=== PATIENT | male | born 1950 | race Caucasian/White ===

== ENCOUNTER 2018-08-29 09:40 | Outpatient (CLI) | payer MEDICARE, BC, SELFPAY ==
[2018-08-29 13:06] LABS: ALT 37 U/L (12-78); AST 17 U/L (15-37); Albumin 3.8 g/dL (3.4-5.0); Alkaline Phosphatase 69 U/L (46-116); Anion Gap 10.8 mmol/L (3-11); BUN 30 mg/dL (7-18); Bilirubin, Total 0.3 mg/dL (0.2-1.0); CO2 27.2 mmol/L (21.0-32.0); CREATININE 1.14 mg/dL (0.70-1.30); Calcium 9.4 mg/dL (8.5-10.1); Calculated LDL 93 mg/dL; Chloride 102 mmol/L (98-107); Cholesterol 177 mg/dL (50-200); Glucose 95 mg/dL (70-100); HDL Cholesterol 36 mg/dL (40-60); Potassium 4.8 mmol/L (3.5-5.1); Sodium 140 mmol/L (136-145); Triglyceride 243 mg/dL (30-150)
[2018-08-30 12:19] LABS: PSA, Screening 0.5 ng/ml (0-4.5)
== END 2018-08-29 10:00 ==
PROVIDERS: PCP Family Medicine; Visit Provider Family Medicine
DX: E78.5 Hyperlipidemia, unspecified (principal); I10 Essential (primary) hypertension; E11.8 Type 2 diabetes mellitus with unspecified complications; Z12.5 Encounter for screening for malignant neoplasm of prostate
CPT/HCPCS: 36415; 80053; 80061; 83721; 84153

== ENCOUNTER 2019-08-15 14:46 | Outpatient (REF) | payer MEDICARE, BC, SELFPAY ==
[2019-08-15 19:42] LABS: HCT 45.4 % (40.0-50.0); HGB 14.9 g/dL (13.5-17.5); Mean Corp. HGB Concentration 32.8 g/dL (32.0-36.0); Mean Corpuscular Hemoglobin 31.6 pg (27.0-33.0); Mean Corpuscular Volume 96.2 fL (80-95); Mean Platelet Volume 11.4 fL (8.0-11.0); Platelet Count 229 x1000/uL (130-400); RBC 4.72 m/cumm (4.50-6.00); RBC Distribution Width 14.9 % (11.8-14.1); White Blood Cell Count 8.98 k/cumm (4.4-10.8)
[2019-08-15 19:43] LABS: ALT 42 U/L (16-63); AST 19 U/L (15-37); Albumin 3.8 g/dL (3.4-5.0); Alkaline Phosphatase 62 U/L (46-116); Anion Gap 9.8 mmol/L (3-11); BUN 25 mg/dL (7-18); Bilirubin, Total 0.3 mg/dL (0.2-1.0); CO2 29.2 mmol/L (21.0-32.0); CREATININE 1.23 mg/dL (0.70-1.30); Calcium 9.4 mg/dL (8.5-10.1); Chloride 101 mmol/L (98-107); Estimated GFR 58.34 (mL/min/1.73m2); Glucose 144 mg/dL (74-106); Magnesium 1.9 mg/dL (1.8-2.4); Potassium 4.2 mmol/L (3.5-5.1); Sodium 140 mmol/L (136-145); Total Protein 6.7 g/dL (6.4-8.2)
== END 2019-08-15 15:06 ==
LOC: NCHCN 14:46
PROVIDERS: PCP Family Medicine; Visit Provider Family Medicine
DX: I10 Essential (primary) hypertension (principal); N28.9 Disorder of kidney and ureter, unspecified; E11.9 Type 2 diabetes mellitus without complications; E78.5 Hyperlipidemia, unspecified; D72.829 Elevated white blood cell count, unspecified
CPT/HCPCS: 80053; 85027; 83735

== ENCOUNTER 2020-08-18 10:45 | Outpatient (REF) | payer MEDICARE, BC, SELFPAY ==
[2020-08-18 19:35] LABS: HCT 48.6 % (40.0-50.0); HGB 15.7 g/dL (13.5-17.5); MCH 31.2 pg (27.0-33.0); MCHC 32.3 % (32.0-36.0); MCV 96.6 fL (80-95); MPV 11.9 fL (8.0-11.0); Platelet Count 238 10^3/uL (130-400); RBC 5.03 10^6/uL (4.36-5.78); RDW 14.6 % (11.8-14.1); RDW-SD 51.8 fL; WBC 9.97 10^3/uL (4.4-10.8)
[2020-08-18 20:14] LABS: ALT 35 U/L (16-63); AST 17 U/L (15-37); Albumin 3.9 g/dL (3.4-5.0); Alkaline Phosphatase 70 U/L (46-116); Anion Gap 10.3 mmol/L (3-11); BUN 22 mg/dL (7-18); Bilirubin, Total 0.3 mg/dL (0.2-1.0); CO2 28.7 mmol/L (21.0-32.0); CREATININE 1.3 mg/dL (0.70-1.30); Calcium 9.5 mg/dL (8.5-10.1); Chloride 101 mmol/L (98-107); Estimated GFR 54.57 (mL/min/1.73m2); Glucose 107 mg/dL (74-106); Potassium 5.1 mmol/L (3.5-5.1); Sodium 140 mmol/L (136-145); TSH (W/Ref FT4) 1.47 uIU/mL (0.36-3.74); Total Protein 7.2 g/dL (6.4-8.2); Vitamin B12 880 pg/mL (193-986)
== END 2020-08-18 11:59 | disposition home or self-care (01) ==
LOC: NCHCN 10:45
PROVIDERS: PCP Family Medicine; Visit Provider Family Medicine
DX: I10 Essential (primary) hypertension (principal); E78.5 Hyperlipidemia, unspecified; I73.9 Peripheral vascular disease, unspecified; G62.9 Polyneuropathy, unspecified
CPT/HCPCS: 80053; 85027; 82607; 84443

== ENCOUNTER 2020-12-17 15:36 | Outpatient (REF) | payer MEDICARE, BC, SELFPAY ==
[2020-12-17 18:54] LABS: Anion Gap 11.5 mmol/L (3-11); BUN 21 mg/dL (7-18); CO2 28.5 mmol/L (21.0-32.0); CREATININE 1.1 mg/dL (0.70-1.30); Calcium 9.4 mg/dL (8.5-10.1); Chloride 101 mmol/L (98-107); Glucose 130 mg/dL (74-106); Sodium 141 mmol/L (136-145)
[2020-12-17 19:02] LABS: Hemoglobin A1C 6.1 % (<5.7)
== END 2020-12-17 15:37 | disposition home or self-care (01) ==
LOC: NCHCN 15:36
PROVIDERS: PCP Family Medicine; Visit Provider Family Medicine
DX: E11.8 Type 2 diabetes mellitus with unspecified complications (principal); I10 Essential (primary) hypertension; N28.9 Disorder of kidney and ureter, unspecified; Z00.00 Encounter for general adult medical examination without abnormal findings
CPT/HCPCS: 80048; 83036

== ENCOUNTER 2022-08-11 15:26 | Outpatient (REF) | payer MEDICARE, BC, SELFPAY ==
[2022-08-11 18:38] LABS: HCT 41.2 % (40.0-50.0); HGB 13.2 g/dL (13.5-17.5); MCH 31.1 pg (27.0-33.0); MCV 97 fL (80-95); MPV 10.8 fL (8.0-11.0); Platelet Count 315 10^3/uL (130-400); RBC 4.25 10^6/uL (4.36-5.78); RDW 13.8 % (11.8-14.1); RDW-SD 49.4 fL; WBC 13.19 10^3/uL (4.4-10.8)
[2022-08-11 18:50] LABS: ALT 43 U/L (16-63); AST 35 U/L (15-37); Albumin 3.2 g/dL (3.4-5.0); Alkaline Phosphatase 68 U/L (46-116); Anion Gap 4.6 mmol/L (3-11); BUN 24 mg/dL (7-18); Bilirubin, Total 0.2 mg/dL (0.2-1.0); CO2 32.4 mmol/L (21.0-32.0); CREATININE 1.2 mg/dL (0.70-1.30); Calcium 9.4 mg/dL (8.5-10.1); Chloride 100 mmol/L (98-107); Estimated GFR 64.25 (mL/min/1.73m2); Glucose 94 mg/dL (74-106); Sodium 137 mmol/L (136-145); Total Protein 7.7 g/dL (6.4-8.2)
== END 2022-08-11 15:27 | disposition home or self-care (01) ==
LOC: NCHCN 15:26
PROVIDERS: PCP Family Medicine; Visit Provider Family Medicine
DX: N28.9 Disorder of kidney and ureter, unspecified (principal); I10 Essential (primary) hypertension; E11.8 Type 2 diabetes mellitus with unspecified complications
CPT/HCPCS: 80053; 85027

== ENCOUNTER 2023-08-24 16:34 | Outpatient (REF) | payer MEDICARE, BC, SELFPAY ==
[2023-08-24 18:51] LABS: HCT 41.5 % (40.0-50.0); HGB 13.9 g/dL (13.5-17.5); MCH 31.6 pg (27.0-33.0); MCHC 33.5 % (32.0-36.0); MCV 94 fL (80-95); MPV 11.8 fL (8.0-11.0); Platelet Count 227 10^3/uL (130-400); RDW 13.7 % (11.8-14.1); RDW-SD 47.7 fL; WBC 11.46 10^3/uL (4.4-10.8)
[2023-08-24 18:53] LABS: ESR 26 mm/hr (0-20)
[2023-08-24 19:34] LABS: ALT 23 U/L (16-63); AST 22 U/L (15-37); Albumin 4.1 g/dL (3.4-5.0); Alkaline Phosphatase 62 U/L (46-116); BUN 28 mg/dL (7-18); Bilirubin, Total 0.32 mg/dL (0.2-1.0); CREATININE 1.1 mg/dL (0.70-1.30); Calcium 9.6 mg/dL (8.5-10.1); Calculated LDL 74 mg/dL (<100); Chloride 100 mmol/L (98-107); Cholesterol 164 mg/dL (<200); Estimated GFR 70.88 (mL/min/1.73m2); Glucose 81 mg/dL (74-106); HDL Cholesterol 40 mg/dL (40-60); Potassium 4.3 mmol/L (3.5-5.1); Sodium 137 mmol/L (136-145); Total Protein 6.9 g/dL (6.4-8.2); Triglyceride 254 mg/dL (<150)
[2023-08-24 20:03] LABS: Hemoglobin A1C 5.5 % (<5.7)
[2023-08-24 20:27] LABS: Uric Acid 8.2 mg/dL (3.5-7.2)
[2023-08-25 17:58] LABS: CRP, High Sensitivity 3.99 mg/L (See Note)
== END 2023-08-24 16:35 | disposition home or self-care (01) ==
LOC: NCHCN 16:34
PROVIDERS: PCP Family Medicine; Visit Provider Family Medicine
DX: E11.9 Type 2 diabetes mellitus without complications (principal); I10 Essential (primary) hypertension; E78.5 Hyperlipidemia, unspecified; M1A.00X1 Idiopathic chronic gout, unspecified site, with tophus (tophi); R79.89 Other specified abnormal findings of blood chemistry; R79.82 Elevated C-reactive protein (CRP); R70.0 Elevated erythrocyte sedimentation rate
CPT/HCPCS: 80053; 80061; 85027; 85652; 86141; 83036; 84550

== ENCOUNTER 2024-08-01 09:40 | Inpatient (IN) | payer MEDICARE, BC, SELFPAY ==
[2024-08-01] VITALS (19 sets, daily range): BP systolic 90–140; BP diastolic 27–84; PULSE 60–89; RESP 14–22; TEMP 36.4–37.4; O2SAT 94–100
--- NOTE | 2024-08-01 09:57 | ED.GENADUL_ITS ---
Discharge Plan Discharge Details Chief Complaint: GenMedical Clinical Impression: Acute osteomyelitis of left calcaneus, Anemia, Severe sepsis, DAKOTA (acute kidney injury) Primary Care Provider: Wanda Cespedes V ED Provider: Rylan Gomez Eola Meds and New Rx's Prescriptions: No Action gabapentin 100 mg capsule 100 mg PO TID Patient Comments: 100 mg AM 200 mG 1600 300 mG bedtime bumetanide 1 mg tablet 1 mg PO DAILY glipizide 5 mg tablet 5 mg PO DAILY amlodipine 2.5 mg tablet 2.5 mg PO DAILY lisinopril 20 mg tablet 20 mg PO DAILY aspirin 81 mg capsule 81 mg PO DAILY atorvastatin 80 mg tablet 80 mg PO DAILY metoprolol succinate 25 mg capsule,sprinkle,ER 24hr 25 mg PO DAILY clopidogrel 75 mg tablet 75 mg PO DAILY multivitamin Tablet 1 tab PO DAILY omega 5-kxo-mth-fish oil [Fish Oil] 1,200 (144-216) mg capsule PO DAILY HPI General Date/Time Provider Initiated Documentation: 08/01/24 09:57 . HPI Narrative: MDM This is a hypotensive but normothermic and not tachycardic 74-year-old male with history of coronary artery disease hypertension hyperlipidemia diabetes active tobacco and PAD with open ulcers on his left foot concerned about the possibility of osteomyelitis for which patient will undergo MRI of his left lower extremity. He is also having abdominal distention and some diarrhea some concern about the possibility of diverticulitis will obtain a CT abdomen pelvis. Given URI symptoms we will also swab for COVID RSV and influenza. No pain out of proportion to suggest necrotizing soft tissue infection. No specific right lower quadrant tenderness to suggest appendicitis. Given concern for sepsis I did not empirically with piperacillin/tazobactam and vancomycin. Will obtain urinalysis to assess for UTI the patient denies dysuria. Patient is not hypoxic and has no abnormal lung sounds and my suspicion is low for pneumonia. No rash to leg to suggest zoster. I considered whether or not to obtain a CT angiogram given patient's prior left femoral endarterectomy and SFA stenting. Given his well-perfused feet we will defer vessel imaging at this point in time. Anticipate patient will require hospitalization. Will initiate fluid resuscitation with 500 cc of crystalloid. Initial lactate was 2.9 we will repeat lactate at 12 PM and provide additional 500 cc of crystalloid. History consistent with severe sepsis. 11:15 AM I was in touch with Dr. Woodard from podiatry who also requested x-rays. 11:35 AM Patient was found to be newly anemic. He was also found to have an DAKOTA. Will order type and screen. Patient's says that he has been receiving iron repletion through the winter. He denies any black or bloody stools.He is on aspirin and clopidogrel but not anticoagulated so no indication for reversal. 4:27 AM I was in touch with Dr. Woodard again. She assessed patient at bedside. She obtained a wound culture. She was concerned about the possibility of calcanectomy at a critical access hospital. She also felt that the patient may require a talectomy. She advised attempting to transfer to tertiary care as patient may benefit from a BKA. I have reached out to transfer center. Will have MRI and x-rays pushed. Patient had no source of intra-abdominal infection. He did have significant bladder distention for which a Donohue catheter was placed. I signed patient out to Dr. Valenzuela pending transfer request to [facility]. Chronic conditions affecting the care of the patient: Peripheral arterial disease multiple interventions History obtained from an outside historian: Patient's with External record review: Discharge from [facility] the spring Diagnostic interpretations performed by me: Per my independent interpretation chest x-ray shows: Per my independent interpretation EKG shows: Not performed ]Medications: Broad-spectrum antibiotics Social determinants of health affecting disposition: N/A Management discussed with: Podiatry Treatment/interventions considered: N/A Response to therapies provided: N/A HPI History of Present Illness The patient presents for evaluation of fever and recent infection. History is reported by other person in the presence of the patient. He was scheduled for vascular surgery at [facility] in February 2024, during which coronary occlusions were discovered. 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 During this period, he developed a pressure ulcer on his left foot, which has since been debrided with Santyl and is currently in the granulation phase. However, the wound's appearance has recently deteriorated. He also developed a heel ulcer, which has been debrided of eschar and is healing well. Postoperatively, he developed a large seroma in his right groin incision, which required opening, cleaning, and debridement. He was treated with antibiotics, but it is unclear if an infection was present as no culture results were observed. The wound was managed with a VAC dressing and is now superficial, although not completely closed. It appears puckered due to the condition. The top of the foot ulcer is being treated with Allevyn Ag with silver, while the heel ulcer is managed with matrix collagen. On 05/07/2024, he underwent a 7-hour revascularization procedure involving the placement of four stents and two prostheses between the iliac and femoral arteries. His follow-up indicated 100% success on one side and 70% on the other due to an old stent in the left leg that had kinked, necessitating the development of collateral circulation. He began experiencing gastrointestinal symptoms, including gastric pain and discomfort, two days ago, coinciding with a fever spike. His initial temperature was 101.8 degrees Fahrenheit, which decreased to 100.4 degrees Fahrenheit with Tylenol but increased again yesterday afternoon. Without Tylenol, his temperature rises back to 100.4 degrees Fahrenheit. He reports upper abdominal pain but no chest pain or syncope. He has a clear runny nose but no cough or cold symptoms. He reports no dysuria, and his urine is clear and yellow. There is no foul-smelling drainage from his feet or ulcers. His ambulation is poor due to neuropathy, affecting his balance and walking ability. He does Exam General: Well-appearing in no acute distress speaking in complete sentences. Head: Normocephalic, atraumatic. Eye: Extraocular eye movements intact. No conjunctival injection. No scleral icterus. Ear, nose, mouth, throat: Grossly normal inspection. Normal voice, handling secretions normally. Neck: Trachea midline. Cardiovascular: Well-perfused distal extremities. Regular rate and rhythm. Respiratory: Nonlabored respiration. Clear lungs bilaterally. Gastrointestinal: Moderately distended abdomen. Soft reducible umbilical hernia. Mild diffuse abdominal pain. No rebound. No guarding. Musculoskeletal: On the patient's left lower extremity there are 2 open ulcerated areas on the patient's left foot. The anterior wound measures approximately 2 x 2 cm. The anterior wound appears to have some mild erythema around the base. The open wound of the patient's left heel measures approximately 3 x 3 cm. Patient has warm well-perfused feet bilaterally. In the patient's right groin there is a well-healing ulcerated area with granulation tissue over small approximately 1 x 1 cm area. On the patient's right foot there are no open ulcers. Patient is missing his fifth toe on the right foot. Skin: Normal for age and race, grossly normal temperature and turgor. No acute rash. Neurologic: Alert and appropriate, no apparent acute deficits. Psychiatric: Mood and manner are appropriate. Grooming and personal hygiene are appropriate. Related Data Home Medications ?Medication ?Instructions ?Recorded ?Confirmed amlodipine 2.5 mg tablet 2.5 mg PO DAILY 08/01/24 08/01/24 aspirin 81 mg capsule 81 mg PO DAILY 08/01/24 08/01/24 atorvastatin 80 mg tablet 80 mg PO DAILY 08/01/24 08/01/24 bumetanide 1 mg tablet 1 mg PO DAILY 08/01/24 08/01/24 clopidogrel 75 mg tablet 75 mg PO DAILY 08/01/24 08/01/24 gabapentin 100 mg capsule 100 mg PO TID 08/01/24 08/01/24 glipizide 5 mg tablet 5 mg PO DAILY 08/01/24 08/01/24 lisinopril 20 mg tablet 20 mg PO DAILY 08/01/24 08/01/24 metoprolol succinate 25 mg capsule 25 mg PO DAILY 08/01/24 08/01/24 sprinkle, ext. release 24 hr multivitamin 1 tab PO DAILY 08/01/24 08/01/24 omega 4-zaf-jiz-fish oil 1,200 mg cap PO DAILY 08/01/24 (144 mg-216 mg) capsule (Fish Oil) Allergies Allergy/AdvReac Type Severity Reaction Status Date / Time codeine Allergy rash Verified 08/01/24 09:52 furosemide (From Lasix) Allergy rash Verified 08/01/24 09:52 hydrochlorothiazide Allergy rash Verified 08/01/24 09:52 turkey AdvReac Diarrhea Verified 08/01/24 09:52 General Stated Complaint: GenMedical RONNY: 3 Course Vital Signs Vital signs: Vital Signs Temperature 37.4 C 08/01/24 09:44 Pulse 89 08/01/24 09:44 Respiratory Rate 18 08/01/24 09:44 Blood Pressure 96/59 L 08/01/24 09:44 Pulse Oximetry 95 08/01/24 09:44 Temperature 37.4 C 08/01/24 09:44 Temperature Source Oral 08/01/24 09:44 Pulse 89 08/01/24 09:44 Respiratory Rate 18 08/01/24 09:44 Blood Pressure 96/59 L 08/01/24 09:44 Pulse Oximetry 95 08/01/24 09:44 Oxygen Delivery Method Room Air 08/01/24 09:44 Oxygen Flow Rate 0 08/01/24 09:44 Comment neuropathy pain 08/01/24 09:44 Medical Decision Making Quality:SDOH Health Related Social Needs: 2 No Data to Display PFSH All Active Problems (Updated 08/01/24 @ 16:55 by Rylan Gomez MD) DAKOTA (acute kidney injury) (Acute) Non-healing ulcer of left foot with necrosis of bone (Acute) Non-healing ulcer of left ankle with necrosis of bone (Acute) Non-healing ulcer of left ankle (Acute) Peripheral arterial disease with history of revascularization (Acute) Acute osteomyelitis of left talus (Acute) Osteomyelitis of left tibia (Acute) Severe sepsis (Acute) Anemia (Chronic) Acute osteomyelitis of left calcaneus (Acute) Social History Smoking risk assessment performed?: No Alcohol Intake: former
--- NOTE | 2024-08-01 10:00 | DI.MRI_ITS ---
Exam(s) MR LOWER EXTREMITY LT WO/W EXAM: MR LOWER EXTREMITY LT WO/W CLINICAL HISTORY: Left anterior foot and heel ulcers TECHNIQUE: Multiplanar multisequence MRI was performed. COMPARISON: No exams were available for comparison FINDINGS: SKIN/SUBCUTANEOUS TISSUES: There is diffuse soft tissue edema-cellulitis. There is a focal ulceratio n over the distal aspect of the 5th toe and there is soft tissue tophus around the distal 5th metatar maria del carmen as well as similar soft tissue tophus around the great toe metatarsophalangeal joint. MARROW/ARTICULATIONS:No evidence of fracture. There is advanced osteoarthritic degenerative change i n the great toe metatarsophalangeal joint. There are advanced arthropathy changes of the tarsometata rsal joints of the midfoot and element of midfoot collapse. Consistent with element of neuropathic f oot findings. Hindfoot calcaneus signal abnormality consistent with probable osteomyelitis; see separate hindfoot/a nkle MRI dictation. There does not appear to be marrow signal consistent with osteomyelitis in the m etatarsals and midfoot bones. There is slight signal abnormality in the distal aspect of the distal phalanx of the 5th toe which may represent developing osteomyelitis at this level subjacent to the fo gorge also at this location. However, this does not fulfill osteomyelitis criteria on all sequences. MUSCLES: Diffuse edema but no distinct focal abscess evident in the mid and forefoot.. EXTRAMUSCULAR SOFT TISSUES: There is diffuse soft tissue edema/cellulitis. OTHER: None. IMPRESSION: 1. Advanced midfoot degenerative arthropathy and partial midfoot collapse. 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 Also advanced degenerative changes in the great toe metatarsophalangeal joint. 2. There is a focal ulcer over the distal aspect of the 5th toe. At risk for developing osteomyeliti s but no definite convincing evidence of osteomyelitis of the subjacent phalanges at this time. Appr opriate follow-up recommended. 3. Diffuse edema and cellulitis in the mid and forefoot but no evidence of focal soft tissue abscess. See separate MRI dictation for hindfoot. DATA REPOSITORY:
--- NOTE | 2024-08-01 10:13 | DI.RAD_ITS ---
Exam(s) XR CHEST 1V IN DI DEPT EXAM: XR CHEST 1V IN DI DEPT CLINICAL HISTORY: Fever. TECHNIQUE: 2D digital imaging was performed. COMPARISON: No exams were available for comparison FINDINGS: Single AP portable view. Heart size is upper normal. The mediastinum is not widened. Lungs are clear. No infiltrates nor obvious pleural effusions. IMPRESSION: No acute pulmonary findings on this single AP portable view of the chest. DATA REPOSITORY: RADIATION DOSE DELIVERED:
[2024-08-01 10:37] LABS: Abs Immature Grans 0.18 10^3/uL (0.0-0.06); Absolute Eosinophil Count 0.03 10^3/uL (0.0-0.7); Absolute Monocyte Count 1.01 10^3/uL (0.1-0.8); Basophils % 0.1 %; Eosinophils % 0.2 %; HGB 7.2 g/dL (13.5-17.5); Immature Grans % 1.3 %; MCHC 31.3 % (32.0-36.0); MCV 83 fL (80-95); MPV 10.6 fL (8.0-11.0); Monocytes % 7.1 %; Neutrophils % 88.3 %; Platelet Count 258 10^3/uL (130-400); RBC 2.77 10^6/uL (4.36-5.78); RDW 16.9 % (11.8-14.1); RDW-SD 51.2 fL; WBC 14.16 10^3/uL (4.4-10.8)
[2024-08-01 10:38] LABS: Absolute Basophil Count 0.01 10^3/uL (0.0-0.2); Absolute Lymphocyte Count 0.42 10^3/uL (1.2-3.4); Lactate 2.9 mmol/L (<or=2.0)
[2024-08-01 10:41] LABS: ESR 49 mm/hr (0-20)
[2024-08-01] MEDS: Normal Saline 500 ML 1000 ML IV ×2 (10:51→11:19)
[2024-08-01] MEDS: ACETAMINOPHEN 1,000 MG/100 ML BTL 400 MG IVPB (10:51)
[2024-08-01 10:54] LABS: Diff Comment Diff Reviewed; Hypochromasia 2+
[2024-08-01 10:59] LABS: ALT 16 U/L (16-63); AST 18 U/L (15-37); Albumin 2.5 g/dL (3.4-5.0); Alkaline Phosphatase 70 U/L (46-116); Anion Gap 6.9 mmol/L (3-11); BUN 47 mg/dL (7-18); Bilirubin, Total 0.3 mg/dL (0.2-1.0); CO2 29.1 mmol/L (21.0-32.0); CREATININE 1.8 mg/dL (0.70-1.30); Calcium 9.4 mg/dL (8.5-10.1); Chloride 97 mmol/L (98-107); Estimated GFR 39.01 (mL/min/1.73m2); Glucose 143 mg/dL (74-106); Potassium 3.7 mmol/L (3.5-5.1); Sodium 133 mmol/L (136-145); Total Protein 6.2 g/dL (6.4-8.2)
--- NOTE | 2024-08-01 11:00 | DI.RAD_ITS ---
Exam(s) XR FOOT LT COMPLETE EXAM: XR FOOT LT COMPLETE CLINICAL HISTORY: Foot ulcers. TECHNIQUE: 2D digital imaging was performed. COMPARISON: No exams were available for comparison FINDINGS: 3 views No evidence of acute fracture or diastasis of the Lisfranc joint. There is a large skin ulcer over t he posterior calcaneus. Other dedicated calcaneus views reveal suspicion for osteomyelitis at this l evel. See separate report. There is mild generalized soft tissue swelling of the foot. There are bolaños moderate-advanced degener ative changes in the great toe metatarsophalangeal joint. There is a possible ulcer or over the 2nd toe but difficult to evaluate for osteomyelitis as there is overlapping of bones. There is an erosion on the medial base of the proximal phalanx of the great toe. Other metatarsophal angeal joints as well as the tarsometatarsal joints appear intact. IMPRESSION: As above. See separate MRI report DATA REPOSITORY: RADIATION DOSE DELIVERED:
--- NOTE | 2024-08-01 11:00 | DI.RAD_ITS ---
Exam(s) XR HEEL LT OS CALCIS EXAM: XR HEEL LT OS CALCIS CLINICAL HISTORY: Foot ulcer. TECHNIQUE: 2D digital imaging was performed. COMPARISON: No exams were available for comparison FINDINGS: Two dedicated views of the calcaneus including lateral and Marvin axial views: There are no fractures. There is a large skin ulcer over the posterior aspect of the calcaneus. The re is some cortical loss in the posterior calcaneus suspicious for osteomyelitis. There is no gas in the soft tissues. IMPRESSION: Suspicious for osteomyelitis in the posterior calcaneus. See MRI report. DATA REPOSITORY: RADIATION DOSE DELIVERED:
--- NOTE | 2024-08-01 11:00 | DI.MRI_ITS ---
Exam(s) MR LOWER JOINT LT WO/W EXAM: MR LOWER JOINT LT WO/W CLINICAL HISTORY: Concern for left second toe Concern for left second toe. Posterior hindfoot calcaneus ulcer. TECHNIQUE: Multiplanar multisequence MRI was performed without intravenous contrast. Multiplanar multisequence MRI of the knee was performed. Both pre and post contrast infused sequence s were performed. Contrast injected was 20 mL Dotarem. COMPARISON: Plain films reviewed FINDINGS: SKIN: There is a large skin ulcer over the posterior aspect of the calcaneus. There is also a focal wound evident over the dorsal lateral ankle. BONES/JOINTS: There is significant signal abnormality and enhancement in the posterior 2/3 of the gorge caneus. This includes confluent hypointense T1 signal and is highly suspicious for osteomyelitis. T here are degenerative changes in the ankle-tibiotalar joint including degenerative subarticular cyst in the medial half of the talar dome and significant narrowing of the joint space at this level. N o abnormal intraosseous signal evident in the distal tibia and fibula. LIGAMENTS: Not well visualized due to motion artifact and edema. SINUS TARSI: There is edema signal in this space. There is no evidence of sinus tarsi ganglion cysts . MUSCULOTENDINOUS STRUCTURES: Achilles tendon: Unremarkable. No evidence of tear nor tendinitis/tendinosis. Plantar fascia: Unremarkable. No evidence of tear, abnormal thickening, nor abnormal nodularity. Anterior Extensor tendons: There is significant abnormal fusiform thickening of the tibialis anterior tendon Medial Tendons: Posterior Tibialis: No tear but there is some fluid in the tendon sheath. Flexor Digitorum longus: No tear but mild tenosynovitis also evident . Flexor Hallicus longus: No tear but mild tenosynovitis. Lateral Tendons: Peroneus longus: There is split tearing of this tendon evident. Also tenosynovitis. Peroneus brevis:Tenosynovitis evident SOFT TISSUES: In addition to tenosynovitis of the peroneus tendons there is also some fluid in the so ft tissues just superficial to these tendons which may represent abscess. Measures approximately 1.8 x 1.1 x 1.4 cm. IMPRESSION: 1. Signal abnormality and enhancement in the posterior 2/3 of the calcaneus consistent with osteomyel itis. There is an overlying prominent skin ulcer over the posterior calcaneus. 2. Tenosynovitis of both the medial tendons and lateral peroneus tendons of the ankle and there is al so additional fluid just lateral to the peroneus tendons measuring 18 x 11 x 14 mm which is suspiciou s for possible abscess. There is no evidence of osteomyelitis in the adjacent lateral malleolus. 3. Achilles tendon appears intact. The large ulcer is just below its attachment on the posterior gorge caneus. DATA REPOSITORY:
[2024-08-01] MEDS: PIPERACILLIN/TAZO 3.375 GM in Normal Saline 50 ML IVPB ×2 (11:02→22:43)
[2024-08-01 11:15] LABS: C-Reactive Protein > 25.00 mg/dL (<or=0.5)
[2024-08-01 11:16] LABS: COVID-19 PCR Negative (Negative); Influenza A PCR Negative (Negative); Influenza B PCR Negative (Negative); RSV PCR Negative (Negative)
[2024-08-01 11:17] LABS: Source Nasopharynx
[2024-08-01] MEDS: Normal Saline Flush 10 ML SYR IVP ×2 (11:50→20:45)
[2024-08-01] MEDS: Gadoterate meglumine 20 ML SYRINGE IVP (11:51)
[2024-08-01] MEDS: Normal Saline - Diluent 50 ML VIAL IJ (13:39)
[2024-08-01] MEDS: Omnipaque 350 MG/ML 100 ML BTL IJ (13:40)
--- NOTE | 2024-08-01 13:50 | DI.CT_ITS ---
Exam(s) CT ABDOMEN PELVIS W EXAM: CT ABDOMEN PELVIS W CLINICAL HISTORY: Abdominal pain. TECHNIQUE: Imaging Protocol: Axial computed tomography images with coronal and sagittal reformatted images were created and reviewed CONTRAST MATERIAL: Intravenous: Omnipaque-350 100cc Oral: None COMPARISON: No exams were available for comparison FINDINGS: VISUALIZED LUNG BASES: No nodules nor pleural effusions evident. ABDOMEN: There is no ascites. LIVER: There are no focal hepatic lesions evident. No dilated intrahepatic ducts. GALLBLADDER/BILIARY: Gallbladder is mildly distended but not edematous. There are no obvious calculi . There is no pericholecystic fluid. CBD is not dilated. PANCREAS: There are tiny calcifications in the pancreatic head and uncinate process. There is no gill nous mass the pancreas nor peripancreatic fluid and the pancreatic duct not dilated. SPLEEN: Spleen size is upper normal. There is a small subcapsular hypodensity in the superior aspect of the spleen measuring 7 mm which is either cyst or hemangioma. No other focal findings in the spl een. Splenic and portal veins are patent. ADRENALS: Right adrenal gland unremarkable. There is a nodule it the genu of the left adrenal gland measuring 1.5 x 1.3 cm KIDNEYS:Tiny cyst in the lateral cortex of the left kidney. Does not require further workup. There are no solid renal masses no obvious calculi. Some calcification in the right kidney is probably vas cular. No hydronephrosis. ABDOMINAL AORTA: Abdominal aorta is heavily calcified but not enlarged. There is no occlusion of the abdominal aorta. There are endovascular stents in the iliac arteries. On the right side these exte nd down from the aortic bifurcation throughout the right common and external iliac arteries. On the left side the stent is seen throughout the length of the left common iliac artery without evidence of stent within the left external iliac artery. There does appear to be some flow within these vessels although this is not a CT angio study. There is evidence of surgery in both groins most probably re lated to vascular grafts. LYMPH NODES:There is no retroperitoneal nor paraaortic adenopathy. ABDOMINAL WALL: There is a fat containing anterior abdominal wall umbilical hernia. No bowel loops w ithin the hernia sac. GI: There is no evidence of bowel obstruction, free air, nor abscess. There are no obvious ischemic appearing bowel loops. PELVIS: GI: No evidence of appendicitis.There is sigmoid diverticulosis. No obvious acute diverticulitis. T here also diverticuli seen throughout the entire length of the left side of the colon. LYMPH NODES: There is no intrapelvic nor inguinal adenopathy. REPRODUCTIVE: There calcifications in the prostate. Prostate size upper normal. Seminal vesicles un remarkable. URINARY BLADDER: The urinary bladder is distended. No obvious mass nor calculi nor clots therein. OSSEOUS: No fractures and no significant osseous lesions. Multilevel chronic degenerative disc disease. IMPRESSION: 1. The abdominal aorta is heavily calcified but not enlarged nor occluded. There are endovascular st ents throughout the entire length of the right common and external iliac arteries and throughout the entire length of the left common iliac artery. There are no stents in the left external iliac artery . There does appear to be some flow in the iliac arteries although there is multilevel intra stent d isease evident. There is evidence of previous surgery in the groins most probably related to vascula r grafts. 2. Diverticulosis of the entire left colon and sigmoid without evidence of obvious acute diverticulit is. 3. Significant distention of the urinary bladder which measures 15 cm AP by 13.5 cm wide by 10 cm hydrocrane operator niocaudal. Consider catheterization. Prostate size upper normal. 4. Anterior abdominal wall fat only containing midline umbilical hernia. Other findings as above. Findings discussed with ER physician 08/01/2024 at 2:02 p.m. RADIATION DOSE DELIVERED: 790.48mGy.cm Total DLP DATA REPOSITORY: All CT scans at this facility are submitted to the National Radiology Data Registry (NRDR) Dose Index Registry (DIR) with the [employer] (A[employer]). RADIATION OPTIMIZATION: All CT scans at this facility use at least one of these dose optimization te chniques: automated exposure control; mA and/or kV adjustment per patient size (includes targeted exa ms where dose is matched to clinical indication); or iterative reconstruction.
[2024-08-01] MEDS: VANCOMYCIN/WATER (PEG) 2 GM/400 ML BAG IVPB (14:04)
[2024-08-01 14:10] LABS: Lactate 2.1 mmol/L (<or=2.0)
[2024-08-01 14:20] LABS: Bilirubin Negative (Negative); Blood Negative (Negative); Clarity Clear (Clear); Glucose Negative (Negative); Ketones Negative (Negative); Leukocyte Esterase Negative (Negative); Nitrite Negative (Negative); Specific Gravity <= 1.005 (1.005-1.025); Urobilinogen 0.2 mg/dL (Up to 0.2); pH 5.5 (5-8)
--- NOTE | 2024-08-01 14:21 | DI.VRAD_ITS ---
PROCEDURE INFORMATION: Exam: MR Left Lower Extremity Without and With Contrast; Forefoot Exam date and time: 08/01/2024 11:45 AM Age: 74 years old Clinical indication: Other: Open wound - second distal phalanx TECHNIQUE: Imaging protocol: MR of the left foot without and with contrast. Exam focused on the forefoot. Contrast material: DOTAREM; Contrast volume: 20 ml; Contrast route: INTRAVENOUS (IV); COMPARISON: No relevant prior studies available. FINDINGS: Limitations: Motion artifact. Excessive amount of sequences. Bones/joints: Degenerative narrowing of the tibiotalar joint. Midfoot collapse. Diffuse edema throughout the posterior 2/3 of the calcaneus. Edema and enhancement of the distal phalanx of the 5th toe. Edema and enhancement of the distal proximal phalanx of the 5th toe. Cystic degenerative changes present in the proximal metatarsals and cuneiform tarsal bones. Degenerative narrowing of the 1st metatarsophalangeal joint with periarticular cystic changes. LIGAMENTS: Collateral ligaments of digits: Grossly intact. No evidence of tear. TENDONS: Flexor tendons of foot: Grossly intact. Extensor tendons of foot: Grossly intact. Soft tissues: Soft tissue edema/cellulitis. No encapsulated fluid collection or abscess. Soft tissue ulceration distal 5th toe. There is a soft tissue tophus around the 1st metatarsophalangeal joint. There is a tophus around the distal 5th metatarsal. IMPRESSION: 1. Soft tissue edema/cellulitis. No encapsulated abscess. 2. There appears to be soft tissue ulceration of the distal 5th toe. 3. Soft tissue tophus around the 1st metatarsophalangeal joint and the distal 5th metatarsal. These findings are consistent with gout. 4. Advanced midfoot arthropathy with midfoot collapse. 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 5. Nonspecific edema throughout the calcaneus. Correlate for possible osteomyelitis. 6. Mild edema and enhancement of the distal 5th phalanx. These findings could be secondary to osteomyelitis. Correlate clinically. Dictated and Authenticated by: Eddi Sanford MD. Orderin Patricia Fagan MD
--- NOTE | 2024-08-01 14:31 | DI.VRAD_ITS ---
PROCEDURE INFORMATION: Exam: MR Left Lower Extremity Joint Without and With Contrast; Ankle Exam date and time: 08/01/2024 12:17 PM Age: 74 years old Clinical indication: Other: Open wounds - anterior ankle/posterior calcaneus TECHNIQUE: Imaging protocol: Magnetic resonance imaging of the left lower extremity without and with contrast. Exam focused on the ankle. Contrast material: DOTAREM; Contrast volume: 20 ml; Contrast route: INTRAVENOUS (IV); COMPARISON: No relevant prior studies available. FINDINGS: Limitations: Motion artifact. Bones/joints: The marrow signal of the distal tibia and fibula is normal. Narrowing of the tibiotalar joint. Advanced midfoot arthritis changes with cystic changes present. Diffuse edema/enhancement of the calcaneus involving the posterior 2/3 of the calcaneus. No obvious erosive change. LIGAMENTS: Distal tibiofibular syndesmosis: Not well visualized. Anterior talofibular ligament: Not well visualized. Posterior talofibular ligament: Not well visualized. Calcaneofibular ligament: Not well visualized. Deltoid ligament complex: Unremarkable. No tear. TENDONS: Flexor tendons of foot: Unremarkable as visualized. Tibialis posterior tendon: Fluid present in the tibialis posterior tendon sheath. No tear. Peroneal tendons: Fluid present in the peroneal tendon sheath. No tendon tear. Extensor tendons of foot: Unremarkable as visualized. Tibialis anterior tendon: Unremarkable as visualized. Achilles tendon: Unremarkable as visualized. Tarsal canal (Sinus tarsi): Unremarkable. Normal signal of the fat. Tarsal tunnel: Unremarkable. Soft tissues: Soft tissue edema/cellulitis. There is lateral soft tissue ulceration. Fluid is present in the soft tissues adjacent to the peroneal tendons. Fluid collection measures 18 x 14 x 11 mm. Plantar fascia: Plantar fascia is unremarkable. IMPRESSION: 1. Soft tissue edema/cellulitis. Lateral soft tissue ulceration. Fluid present in the soft tissues adjacent to the peroneal tendons. Possible abscess. Recommend aspiration. 2. Edema and enhancement of the posterior 2/3 of the calcaneus. Findings are consistent with osteomyelitis. 3. Peroneal tenosynovitis. 4. Tibialis posterior tenosynovitis. Dictated and Authenticated by: Eddi Sanford MD. Orderin Patricia Fagan MD
--- NOTE | 2024-08-01 15:07 | DI.RAD_ITS ---
Exam(s) XR TIB/FIB LT EXAM: XR TIB/FIB LT CLINICAL HISTORY: Ankle X-Ray. TECHNIQUE: 2D digital imaging was performed. COMPARISON: No exams were available for comparison FINDINGS: TWO VIEWS No evidence of fracture of the tibia and fibula. No osseous lesions and bone density is normal. There appears to be edema in the soft tissues throughout the calf IMPRESSION: There is edema throughout the calf. No significant osseous findings. DATA REPOSITORY: RADIATION DOSE DELIVERED:
[2024-08-01] MEDS: Normal Saline 1,000 ML 125 ML IV (16:31)
--- NOTE | 2024-08-01 16:33 | POCOE_ITS ---
Date of service: 08/01/24 Time of Service: 03:50 Assessment and Plan Assessment and plan (1) Osteomyelitis of left tibia: Status: Acute (2) Acute osteomyelitis of left talus: Status: Acute (3) Severe sepsis: Status: Acute (4) Peripheral arterial disease with history of revascularization: Status: Acute (5) Non-healing ulcer of left ankle: Status: Acute (6) Non-healing ulcer of left ankle with necrosis of bone: Status: Acute (7) Non-healing ulcer of left foot with necrosis of bone: Status: Acute Assessment and plan: This is a 74-year-old male patient with history of coronary artery disease, hypertension, hyperlipidemia, diabetes, current tobacco use, PAD with revascularization with nonhealing ulcer to the left heel since the fall 2023. They are snowbirds and have recently moved back from the [facility] to [place]. He has a nonhealing ulcer of the anterior aspect of the left ankle since March. He states that the wound to the heel has been healing well as well as the wound to the anterior ankle. As per his , the tendons on the ankle are gone now secondary to infection and wound, however the wound has been healing. He reports a kink in the stent to the left lower extremity with blockages however there is collateralization as per the patient. At this time, the patient has sepsis. He has some soft tissue gas on the anterior aspect of the ankle as noted on x-ray. I recommended and irrigated the anterior wound with copious amounts of sterile saline and dilute Betadine to help flush out the purulence and drainage. There is serous as well as purulent drainage from the wound. No further drainage noted after completion of the irrigation. Blunt debridement was performed to remove the necrotic, devitalized tissue. Dressings were applied with Betadine soaked packing gauze, 4 x 4, Betadine soaked 4 x 4 to the heel, Kerlix and tape. Upon MRI review there is presence of osteomyelitis to the left calcaneus. This is new since March as per his who states that there was no evidence for osteomyelitis to the heel in March. The report also notes abscess along the peroneals. Clinically, there is no open ulceration, there is no overlying ulceration, there is no erythema, there is some edema, no crepitus, no fluctuance. The patient has poor circulation and 2x ischemic ulcers. I did not attempt I&D of this area as my clinical suspicion for a true abscess is low and I do not recommend creating another wound. The heel wound has been present since fall and has not healed. It has progressed to osteomyelitis in the calcaneus. Currently he was not on any antibiotics. I recommend continued antibiotics. He will require at least 6 weeks of IV antibiotics for this heel wound alone. There is a very high risk that this will not heal as the wound has not healed since fall despite regular treatment. Additionally, there is about 1.5cm of tibia and 1.5cm of talus exposed in the anterior wound. There was gas on x-ray. The infection has been worsening, now osteomyelitis and leading to severe sepsis. I discussed with the patient that it may be best to proceed with a below-knee amputation at this time since there is evidence for osteomyelitis to the calcaneus, at this point the tibia and the talus are considered to be with osteomyelitis as well since there is bone exposed. I recommend transfer to [facility] for a vascular consultation, I recommend consultation with infectious disease to help with antibiotics and help determine the duration as well as their input on healing potential. History of Present Illness Narrative: 74-year-old male patient with history of coronary artery disease, hypertension, hyperlipidemia, diabetes, active tobacco use, PAD, history of revascularization consulted for left lower extremity ulceration. Patient was seen bedside with his present who is the primary historian. Patient states he has had the heel wound since the fall of last year and has been having it treated and states that it has been healing well. He states that in March, he developed a wound to the anterior lateral aspect of the left ankle after a strap was applied too tight during surgery for vascular procedure. He does report of wounds to his groin which has been healing with wound VAC. States that there is a kink to the stent placed on the left lower extremity. States that he was advised by vascular that the left lower extremities perfused by collaterals and he does have blockages. No other pedal complaints reported today. Review of Systems Cardiovascular Comments: Ischemic ulcers left lower extremity. History of revascularization. Integumentary/Breasts Comments: Ulcers to the left foot and ankle Neurologic Comments: Absent sensation to the left lower extremity PFSH All Active Problems DAKOTA (acute kidney injury) (Acute) Non-healing ulcer of left foot with necrosis of bone (Acute) Non-healing ulcer of left ankle with necrosis of bone (Acute) Non-healing ulcer of left ankle (Acute) Peripheral arterial disease with history of revascularization (Acute) Acute osteomyelitis of left talus (Acute) Osteomyelitis of left tibia (Acute) Severe sepsis (Acute) Anemia (Chronic) Acute osteomyelitis of left calcaneus (Acute) Social History Smoking risk assessment performed?: No Alcohol Intake: former Exam Extrem Other: Left lower extremity physical exam: Full-thickness ulcer noted to the posterior aspect of the left heel with 100% necrotic base, exposed/palpable bone noted, mild erythema and soft tissue necrosis noted FLORENCIA ulcer, no crepitus no bogginess no fluctuance no active purulence no proximal streaking lymphangitis. Full-thickness ulcer noted to the anterior lateral aspect of the left ankle with tendon exposed, the ulcer probes to bone there is about 1.5 cm of tibia and talus exposed and palpable, there is serous and purulent drainage noted at this wound, no periwound erythema, no crepitus no fluctuance, the borders are well- circumscribed and ischemic in appearance, the wound has a punched-out appearance consistent with ischemic ulcer, no proximal streaking. Ulcer noted to the dorsal aspect of the left second toe. Edema noted along the course of the peroneal tendons however no open ulceration no erythema no tenderness to palpation no tenderness to deep palpation no crepitus no fluctuance no proximal streaking or lymphangitis. Vascular: DP, PT pulses are nonpalpable, ischemic ulcers noted to the left foot both anterior ankle and posterior aspect of the left heel. Hair growth is absent. Neuro: Light touch sensation absent to the left lower extremity. MSK: No tenderness to palpation. Results Last Vital Signs Temp 99.3 F 08/01/24 10:04 Pulse 68 08/01/24 15:46 Resp 17 08/01/24 15:46 BP 116/37 L 08/01/24 15:46 Pulse Ox 100 08/01/24 15:46 Labs 08/01/24 10:23 08/01/24 10:23 Labs: Laboratory Results - last 24 hr 08/01/24 08/01/24 08/01/24 10:19 10:23 14:00 WBC 14.16 H RBC 2.77 L Hgb 7.2 L Hct 23.0 L MCV 83 MCH 26.0 L MCHC 31.3 L RDW 16.9 H Plt Count 258 MPV 10.6 Immature Gran % 1.3 Neutrophils % 88.3 Lymphocytes % 3.0 Monocytes % 7.1 Eosinophils % 0.2 Basophils % 0.1 Nucleated RBC % 0.0 Absolute Neutrophils 12.50 H Absolute Lymphocytes 0.42 L Absolute Monocytes 1.01 H Absolute Eosinophils 0.03 Absolute Basophils 0.01 RBC Morphology See Below Hypochromasia 2+ ESR 49 H VBG Lactate 2.9 H* 2.1 Sodium 133 L Potassium 3.7 Chloride 97 L Carbon Dioxide 29.1 Anion Gap 6.9 BUN 47 H Creatinine 1.8 H Est GFR (CKD-EPI 2020) 39.01 Glucose 143 H Calcium 9.4 Total Bilirubin 0.3 AST 18 ALT 16 Alkaline Phosphatase 70 C-Reactive Protein > 25.00 H Total Protein 6.2 L Albumin 2.5 L Urine Color Urine Clarity Urine pH Ur Specific [place] Urine Protein Urine Ketones Urine Blood Urine Nitrite Urine Bilirubin Urine Urobilinogen Ur Leukocyte Esterase Urine Glucose COVID-19 Source Nasopharynx SARS-CoV-2 (PCR) Negative Influenza Type A (PCR) Negative Influenza Type B (PCR) Negative RSV (PCR) Negative ABO/Rh Antibody Screen 08/01/24 08/01/24 14:10 14:40 WBC RBC Hgb Hct MCV MCH MCHC RDW Plt Count MPV Immature Gran % Neutrophils % Lymphocytes % Monocytes % Eosinophils % Basophils % Nucleated RBC % Absolute Neutrophils Absolute Lymphocytes Absolute Monocytes Absolute Eosinophils Absolute Basophils RBC Morphology Hypochromasia ESR VBG Lactate Sodium Potassium Chloride Carbon Dioxide Anion Gap BUN Creatinine Est GFR (CKD-EPI 2020) Glucose Calcium Total Bilirubin AST ALT Alkaline Phosphatase C-Reactive Protein Total Protein Albumin Urine Color Yellow Urine Clarity Clear Urine pH 5.5 Ur Specific [place] <= 1.005 Urine Protein Negative Urine Ketones Negative Urine Blood Negative Urine Nitrite Negative Urine Bilirubin Negative Urine Urobilinogen 0.2 Ur Leukocyte Esterase Negative Urine Glucose Negative COVID-19 Source SARS-CoV-2 (PCR) Influenza Type A (PCR) Influenza Type B (PCR) RSV (PCR) ABO/Rh O Positive Antibody Screen NEGATIVE Procedures Abscess I/D Site: lower extremity (Left anterior ankle) Sedation/analgesia: none Technique: other (Blunt debridement) Amount of fluid (mL): 5 Irrigation: Yes (Normal saline/dilute Betadine) Packing used?: plain (Soaked in Betadine)
--- NOTE | 2024-08-01 17:12 | ED.PROG_ITS ---
Date of service: 08/01/24 Time of Service: 17:00 Medical Decision Making In brief, this is a 74-year-old male patient boarding in our emergency department awaiting final placement for osteomyelitis of the left calcaneus complicated by severe sepsis and DAKOTA. Prior to my taking over his care, this patient had a workup to include laboratory studies notable for leukocytosis to 14, anemia to 7.2, and elevated inflammatory markers. He has renal dysfunction with a BUN of 47 and a creatinine of 1.8. The patient was slightly hypotensive, with an elevated lactate that improved following fluid resuscitation. He had a CT abdomen and pelvis that did not identify any additional sources of his sepsis. Podiatry was consulted, obtained a wound culture, and suspects that this patient will require calcanectomy, which in this vascularly complex patient would be better performed at a tertiary care center. The patient was signed out to me prior to discussion with [facility]. I did have a discussion with the vascular team at [facility], and they recommend transfer to their department for definitive management, which unfortunately cannot be completed until tomorrow due to [facility] bed availability. Dr. Price has accepted this patient, and he will be admitted to the hospitalist service awaiting bed availability at [facility]. I provided him with oral medications for his ongoing pain, and discussed his case with the hospitalist who is graciously accepted this patient for admission for ongoing antibiosis and fluid resuscitation as needed. The patient remained hemodynamically improved while under my care and was transferred from this department without incident. Eliza Valenzuela MD Medical Records Medical records reviewed: Yes I reviewed the patient's medical records. Lab Data Lab results reviewed: Yes I reviewed the patient's lab results. Quality:[facility] Health Related Social Needs: No Data to Display Critical Care Time Critical Care Time Critical Care Time: Yes Total Critical Care Time: 35 Attestation: Upon my evaluation, this patient had a high probability of imminent or life- threatening deterioration due to severe sepsis without septic shock, osteomyelitis of the left tibia and calcaneus, which required my direct attention, intervention, and personal management. I have personally provided 35 minutes of critical care time exclusive of time spent on separately billable procedures. Time includes review of laboratory data, radiology results, discussion with consultants, and monitoring for potential decompensation. Interventions were performed as documented above. Eliza Valenzuela MD Discharge Plan Disposition Patient Disposition: Admit to [facility] Condition: Improving Discharge Details Chief Complaint: GenMedical Clinical Impression: Acute osteomyelitis of left calcaneus, Anemia, Severe sepsis, DAKOTA (acute kidney injury) Primary Care Provider: Wanda Cespedes V ED Provider: Eliza Valenzuela Home Meds and New Rx's Prescriptions: No Action gabapentin 100 mg capsule 100 mg PO TID Patient Comments: 100 mg AM 200 mG 1600 300 mG bedtime bumetanide 1 mg tablet 1 mg PO DAILY glipizide 5 mg tablet 5 mg PO DAILY amlodipine 2.5 mg tablet 2.5 mg PO DAILY lisinopril 20 mg tablet 20 mg PO DAILY aspirin 81 mg capsule 81 mg PO DAILY atorvastatin 80 mg tablet 80 mg PO DAILY metoprolol succinate 25 mg capsule,sprinkle,ER 24hr 25 mg PO DAILY clopidogrel 75 mg tablet 75 mg PO DAILY multivitamin Tablet 1 tab PO DAILY omega [id number] oil [Fish Oil] 1,200 (144-216) mg capsule PO DAILY
--- NOTE | 2024-08-01 18:59 | W.PM.HP.N ---
Date of service: 08/01/24 Time of Service: 18:59 Assessment and Plan Assessment and plan (1) Sepsis: Start date: 08/01/24 Status: Acute Assessment and plan: This is a 74-year-old gentleman with diabetes and poorly healing ulcers with PAD now with osteomyelitis in the left lower extremity over the talus and tibia on IV antibiotic therapy with vancomycin and Zosyn with transfer to the vascular team at [facility] [place]ed by Dr. Price pending bed. He will be admitted to continue IV antibiotic therapy and supportive care with sepsis having DAKOTA with fluid resuscitation and not having hypotension. He did not need ICU admission at this time. He does have diabetes with will be treated acutely as an inpatient holding his oral hypoglycemic. He will be on heparin for DVT prophylaxis pending transfer for possible surgery. He is a full code. (2) DAKOTA (acute kidney injury): Start date: 08/01/24 Status: Acute Assessment and plan: Continue IV fluid resuscitation with Donohue catheter watching intake and output closely. He is not hypotensive. (3) Acute osteomyelitis of left talus: Start date: 08/01/24 Status: Acute Assessment and plan: IV vancomycin and Zosyn pending transfer to [facility] vascular surgery. Patient may need further revascularization significant PAD still existing on the left. (4) PAD (peripheral artery disease): Status: Chronic Assessment and plan: Continue Plavix and patient will be seen by vascular surgery in transfer. (5) Type 2 diabetes mellitus: Status: Chronic Assessment and plan: Glucometers before meals and bedtime with sliding scale coverage while hospitalized. Patient usually is on oral hypoglycemic. (6) Hyperlipidemia: Start date: 08/01/24 Status: Chronic Assessment and plan: Continue high-dose statin therapy. (7) HTN (hypertension): Status: Chronic Assessment and plan: Continue outpatient medical therapy adjusting as needed. History of Present Illness History of Present Illness Chief Complaint: Fever with recent infection treated in [place]. Narrative: This is a 74-year-old male patient who recently came back to [place] where he cohen usually being in [facility] where he has had recent cardiac intervention with planned CABG converting to cardiac catheterization with stenting because of complications and wounds over his feet with the right foot healed after revascularization having 100% improvement and blood flow but the left foot having ongoing wounds over his ankle and heel which are not closing and have foul-smelling discharge. He was treated with antibiotics in [place] and [facility] and [place] for several weeks, he has had symptoms including fever recently over 101 ?F, drainage from his left foot which is being treated but not healing because of only 70% success of revascularization in [place]. He was having some abdominal discomfort and there was concern for abdominal infection with CT scan with contrast revealing no acute infectious process but multiple stents and occlusive arterial vascular disease in the large arteries especially of the left. MRI of the left lower extremity did reveal probable osteomyelitis of the calcaneus and some changes in the metatarsals and fifth phalanges. Imaging of the tib-fib showed no osseous changes. The patient was initiated on vancomycin and Zosyn with concerns for sepsis and with his ongoing issues with osteomyelitis. Vascular surgery was called to [facility] and have accepted the patient for transfer for interventions. He is diabetic with peripheral neuropathy and this will be treated pending transfer. He does have dry bandages over his feet with the right foot mostly healed as stated in the left foot having ongoing problems. He is a full code. Review of Systems Narrative: 13 point review of systems otherwise unrevealing or stable. PFSH All Active Problems (Updated 08/01/24 @ 19:16 by Manoj Thomas) PAD (peripheral artery disease) (Chronic) Hyperlipidemia (Chronic) Type 2 diabetes mellitus (Chronic) HTN (hypertension) (Chronic) Sepsis (Acute) DAKOTA (acute kidney injury) (Acute) Non-healing ulcer of left foot with necrosis of bone (Acute) Non-healing ulcer of left ankle with necrosis of bone (Acute) Peripheral arterial disease with history of revascularization (Acute) Acute osteomyelitis of left talus (Acute) Osteomyelitis of left tibia (Acute) Severe sepsis (Acute) Anemia (Chronic) Acute osteomyelitis of left calcaneus (Acute) Social History Smoking risk assessment performed?: No Alcohol Intake: former Housing: house Meds Allergies and Home Medications Allergies Allergy/AdvReac Type Severity Reaction Status Date / Time codeine Allergy rash Verified 08/01/24 09:52 furosemide (From Lasix) Allergy rash Verified 08/01/24 09:52 hydrochlorothiazide Allergy rash Verified 08/01/24 09:52 turkey AdvReac Diarrhea Verified 08/01/24 09:52 Home Medications ?Medication ?Instructions ?Recorded ?Confirmed ?Type amlodipine 2.5 mg tablet 2.5 mg PO DAILY 08/01/24 08/01/24 History aspirin 81 mg capsule 81 mg PO DAILY 08/01/24 08/01/24 History atorvastatin 80 mg tablet 80 mg PO DAILY 08/01/24 08/01/24 History bumetanide 1 mg tablet 1 mg PO DAILY 08/01/24 08/01/24 History clopidogrel 75 mg tablet 75 mg PO DAILY 08/01/24 08/01/24 History gabapentin 100 mg capsule 100 mg PO TID 08/01/24 08/01/24 History glipizide 5 mg tablet 5 mg PO DAILY 08/01/24 08/01/24 History lisinopril 20 mg tablet 20 mg PO DAILY 08/01/24 08/01/24 History metoprolol succinate 25 mg capsule 25 mg PO DAILY 08/01/24 08/01/24 History sprinkle, ext. release 24 hr multivitamin 1 tab PO DAILY 08/01/24 08/01/24 History omega [id number] oil 1,200 mg cap PO DAILY 08/01/24 History (144 mg-216 mg) capsule (Fish Oil) Exam Narrative Exam Narrative: General: Patient appears appropriate for age, alert and oriented x 3 and in no acute distress. HEENT: Normocephalic, eyes with pupils equal and react to light symmetrically, extraocular movement intact and sclera anicteric. Oropharynx with moist mucosa and fair dentition. Neck: Supple without JVD. Back: Normal posture without CVA tenderness. Lungs: Fair aeration and clear to oscillation percussion with no focalizing rales or rhonchi. No expiratory wheeze. Heart: Regular rate and rhythm with no appreciable murmur or gallop. Abdomen: Obese contour, soft and nontender to palpation with no palpable hepatosplenomegaly. Bowel sounds positive in all quadrants. Genitalia/rectal: Exam deferred. Patient does have Donohue catheter in place draining clear urine. Extremities: Without clubbing, cyanosis or grossly pitting edema with dry bandages over both feet and ankles. Patient reports that wounds over his right foot are closed and not draining but left foot are draining. Fair cap refill. Skin: Normal color, warm and dry. Neuro: Cranial nerves II to XII pulse intact, no focalizing motor deficits or tremor. Decree sensation in lower extremities. Psych: Normal affect and mood. No abnormal thought processes. Remote and recent memory grossly intact. Results Imaging Imaging Studies: EXAM: XR TIB/FIB LT Date of exam: 08/01/2024 CLINICAL HISTORY: Ankle X-Ray. TECHNIQUE: 2D digital imaging was performed. COMPARISON: No exams were available for comparison FINDINGS: No evidence of fracture of the tibia and fibula. No osseous lesions and bone density is normal. There appears to be edema in the soft tissues throughout the calf IMPRESSION: There is edema throughout the calf. No significant osseous findings. EXAM: XR HEEL LT OS CALCIS Date of exam: 08/01/2024 CLINICAL HISTORY: Foot ulcer. TECHNIQUE: 2D digital imaging was performed. COMPARISON: No exams were available for comparison FINDINGS: Two dedicated views of the calcaneus including lateral and Marvin axial views: There are no fractures. There is a large skin ulcer over the posterior aspect of the calcaneus. There is some cortical loss in the posterior calcaneus suspicious for osteomyelitis. There is no gas in the soft tissues. IMPRESSION: Suspicious for osteomyelitis in the posterior calcaneus. See MRI report. Exam: MR Left Lower Extremity Without and With Contrast; Forefoot Exam date and time: 08/01/2024 11:45 AM Age: 74 years old Clinical indication: Other: Open wound - second distal phalanx TECHNIQUE: Imaging protocol: MR of the left foot without and with contrast. Exam focused on the forefoot. Contrast material: DOTAREM; Contrast volume: 20 ml; Contrast route: INTRAVENOUS (IV); COMPARISON: No relevant prior studies available. FINDINGS: Limitations: Motion artifact. Excessive amount of sequences. Bones/joints: Degenerative narrowing of the tibiotalar joint. Midfoot collapse. Diffuse edema throughout the posterior 2/3 of the calcaneus. Edema and enhancement of the distal phalanx of the 5th toe. Edema and enhancement of the distal proximal phalanx of the 5th toe. Cystic degenerative changes present in the proximal metatarsals and cuneiform tarsal bones. Degenerative narrowing of the 1st metatarsophalangeal joint with periarticular cystic changes. LIGAMENTS: Collateral ligaments of digits: Grossly intact. No evidence of tear. TENDONS: Flexor tendons of foot: Grossly intact. Extensor tendons of foot: Grossly intact. Soft tissues: Soft tissue edema/cellulitis. No encapsulated fluid collection or abscess. Soft tissue ulceration distal 5th toe. There is a soft tissue tophus around the 1st metatarsophalangeal joint. There is a tophus around the distal 5th metatarsal. IMPRESSION: 1. Soft tissue edema/cellulitis. No encapsulated abscess. 2. There appears to be soft tissue ulceration of the distal 5th toe. 3. Soft tissue tophus around the 1st metatarsophalangeal joint and the distal 5th metatarsal. These findings are consistent with gout. 4. Advanced midfoot arthropathy with midfoot collapse. 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 5. Nonspecific edema throughout the calcaneus. Correlate for possible osteomyelitis. 6. Mild edema and enhancement of the distal 5th phalanx. These findings could be secondary to osteomyelitis. Correlate clinically. EXAM: CT ABDOMEN PELVIS W Date of exam: 08/01/2024 CLINICAL HISTORY: Abdominal pain. TECHNIQUE: Imaging Protocol: Axial computed tomography images with coronal and sagittal reformatted images were created and reviewed CONTRAST MATERIAL: Intravenous: Omnipaque-350 100cc Oral: None COMPARISON: No exams were available for comparison FINDINGS: VISUALIZED LUNG BASES: No nodules nor pleural effusions evident. ABDOMEN: There is no ascites. LIVER: There are no focal hepatic lesions evident. No dilated intrahepatic ducts. GALLBLADDER/BILIARY: Gallbladder is mildly distended but not edematous. There are no obvious calculi. There is no pericholecystic fluid. CBD is not dilated. PANCREAS: There are tiny calcifications in the pancreatic head and uncinate process. There is no ominous mass the pancreas nor peripancreatic fluid and the pancreatic duct not dilated. SPLEEN: Spleen size is upper normal. There is a small subcapsular hypodensity in the superior aspect of the spleen measuring 7 mm which is either cyst or hemangioma. No other focal findings in the spleen. Splenic and portal veins are patent. ADRENALS: Right adrenal gland unremarkable. There is a nodule it the genu of the left adrenal gland measuring 1.5 x 1.3 cm KIDNEYS:Tiny cyst in the lateral cortex of the left kidney. Does not require further workup. There are no solid renal masses no obvious calculi. Some calcification in the right kidney is probably vascular. No hydronephrosis. ABDOMINAL AORTA: Abdominal aorta is heavily calcified but not enlarged. There is no occlusion of the abdominal aorta. There are endovascular stents in the iliac arteries. On the right side these extend down from the aortic bifurcation throughout the right common and external iliac arteries. On the left side the stent is seen throughout the length of the left common iliac artery without evidence of stent within the left external iliac artery. There does appear to be some flow within these vessels although this is not a CT angio study. There is evidence of surgery in both groins most probably related to vascular grafts. LYMPH NODES:There is no retroperitoneal nor paraaortic adenopathy. ABDOMINAL WALL: There is a fat containing anterior abdominal wall umbilical hernia. No bowel loops within the hernia sac. GI: There is no evidence of bowel obstruction, free air, nor abscess. There are no obvious ischemic appearing bowel loops. PELVIS: GI: No evidence of appendicitis.There is sigmoid diverticulosis. No obvious acute diverticulitis. There also diverticuli seen throughout the entire length of the left side of the colon. LYMPH NODES: There is no intrapelvic nor inguinal adenopathy. REPRODUCTIVE: There calcifications in the prostate. Prostate size upper normal. Seminal vesicles unremarkable. URINARY BLADDER: The urinary bladder is distended. No obvious mass nor calculi nor clots therein. OSSEOUS: No fractures and no significant osseous lesions. Multilevel chronic degenerative disc disease. IMPRESSION: 1. The abdominal aorta is heavily calcified but not enlarged nor occluded. There are endovascular stents throughout the entire length of the right common and external iliac arteries and throughout the entire length of the left common iliac artery. There are no stents in the left external iliac artery. There does appear to be some flow in the iliac arteries although there is multilevel intra stent disease evident. There is evidence of previous surgery in the groins most probably related to vascular grafts. 2. Diverticulosis of the entire left colon and sigmoid without evidence of obvious acute diverticulitis. 3. Significant distention of the urinary bladder which measures 15 cm AP by 13.5 cm wide by 10 cm craniocaudal. Consider catheterization. Prostate size upper normal. 4. Anterior abdominal wall fat only containing midline umbilical hernia. Other findings as above. Labs 08/02/24 06:00 08/02/24 06:00 Labs: Laboratory Results - last 24 hr 05/29/25 05/29/25 05/29/25 10:19 10:23 14:00 WBC 14.16 H RBC 2.77 L Hgb 7.2 L Hct 23.0 L MCV 83 MCH 26.0 L MCHC 31.3 L RDW 16.9 H Plt Count 258 MPV 10.6 Immature Gran % 1.3 Neutrophils % 88.3 Lymphocytes % 3.0 Monocytes % 7.1 Eosinophils % 0.2 Basophils % 0.1 Nucleated RBC % 0.0 Absolute Neutrophils 12.50 H Absolute Lymphocytes 0.42 L Absolute Monocytes 1.01 H Absolute Eosinophils 0.03 Absolute Basophils 0.01 RBC Morphology See Below Hypochromasia 2+ ESR 49 H VBG Lactate 2.9 H* 2.1 Sodium 133 L Potassium 3.7 Chloride 97 L Carbon Dioxide 29.1 Anion Gap 6.9 BUN 47 H Creatinine 1.8 H Est GFR (CKD-EPI 2020) 39.01 Glucose 143 H Calcium 9.4 Total Bilirubin 0.3 AST 18 ALT 16 Alkaline Phosphatase 70 C-Reactive Protein > 25.00 H Total Protein 6.2 L Albumin 2.5 L Urine Color Urine Clarity Urine pH Ur Specific [place] Urine Protein Urine Ketones Urine Blood Urine Nitrite Urine Bilirubin Urine Urobilinogen Ur Leukocyte Esterase Urine Glucose COVID-19 Source Nasopharynx SARS-CoV-2 (PCR) Negative Influenza Type A (PCR) Negative Influenza Type B (PCR) Negative RSV (PCR) Negative ABO/Rh Antibody Screen 08/01/24 08/01/24 14:10 14:40 WBC RBC Hgb Hct MCV MCH MCHC RDW Plt Count MPV Immature Gran % Neutrophils % Lymphocytes % Monocytes % Eosinophils % Basophils % Nucleated RBC % Absolute Neutrophils Absolute Lymphocytes Absolute Monocytes Absolute Eosinophils Absolute Basophils RBC Morphology Hypochromasia ESR VBG Lactate Sodium Potassium Chloride Carbon Dioxide Anion Gap BUN Creatinine Est GFR (CKD-EPI 2020) Glucose Calcium Total Bilirubin AST ALT Alkaline Phosphatase C-Reactive Protein Total Protein Albumin Urine Color Yellow Urine Clarity Clear Urine pH 5.5 Ur Specific [place] <= 1.005 Urine Protein Negative Urine Ketones Negative Urine Blood Negative Urine Nitrite Negative Urine Bilirubin Negative Urine Urobilinogen 0.2 Ur Leukocyte Esterase Negative Urine Glucose Negative COVID-19 Source SARS-CoV-2 (PCR) Influenza Type A (PCR) Influenza Type B (PCR) RSV (PCR) ABO/Rh O Positive Antibody Screen NEGATIVE Last Vital Signs Temp 36.4 C 08/01/24 17:40 Pulse 83 08/01/24 18:21 Resp 16 08/01/24 18:21 BP 140/84 08/01/24 18:21 Pulse Ox 100 08/01/24 18:21 Time Spent Time spent with Patient: >75 minutes Time was spent: preparing to see the patient(eg.review tests), obtaining and/or reviewing separately otained hiistory, ordering medications,tests, procedures, referring, communicating with other health assurance services manager health care, indepentently interpreting results, counseling the patient and care coordination
[2024-08-01] MEDS: Acetaminophen 500 MG TAB 1000 MG PO (19:10)
[2024-08-01] MEDS: Heparin 5,000 UNITS/ML VIAL 5000 UNITS SC (22:43)
[2024-08-02] VITALS (8 sets, daily range): BP systolic 89–107; BP diastolic 40–66; PULSE 62–79; RESP 16–20; TEMP 36.5–37.1; O2SAT 94–100
[2024-08-02] MEDS: Gabapentin 300 MG CAP PO (00:23)
--- NOTE | 2024-08-02 01:20 | W.PC.ACHO ---
Registration Status: Primary Language: Preferred Language: ED Information & Data Chief Complaint GenMedical 08/01/24 10:14 Triage Note states that patient 08/01/24 09:44 started having a fever on Monday, took tylenol at 0700 this morning. states that patient has multiple ulcers, recent travel to [place]. Most Recent Vital Signs Temperature 36.5 C 08/02/24 00:03 Temperature Source Tympanic 08/02/24 00:03 Pulse 66 08/02/24 00:03 Pulse 78 08/01/24 19:46 Respiratory Rate 19 08/02/24 00:03 Respiratory Effort Normal 08/01/24 12:23 Respiratory Depth Normal 08/01/24 12:23 Respiratory Pattern Normal 08/01/24 12:23 Blood Pressure 90/40 L 08/02/24 00:03 Blood Pressure Mean 56 08/02/24 00:03 Blood Pressure Position Sitting 08/01/24 10:04 Pulse Oximetry 100 08/02/24 00:03 Oxygen Delivery Method Room Air 08/02/24 00:03 Oxygen Flow Rate 0 08/02/24 00:03 Comment nurse notified 08/02/24 00:03 Allergies codeine Allergy (Verified 08/01/24 09:52) rash furosemide (From Lasix) Allergy (Verified 08/01/24 09:52) rash hydrochlorothiazide Allergy (Verified 08/01/24 09:52) rash turkey Adverse Reaction (Verified 08/01/24 09:52) Diarrhea Precautions Isolation Standard precaution 08/01/24 10:04 Active Medications Generic Name Dose Route Start Last Admin Trade Name Freq PRN Reason Stop Dose Admin Heparin Sodium (Porcine) 5,000 units 08/01/24 22:00 08/01/24 22:43 Heparin 5,000 Units/Ml Vial SC 5,000 units Q8H MARLYN Administration Piperacillin Sod/Tazobactam 50 mls @ 100 mls/hr 08/01/24 22:00 08/02/24 00:24 Sod 3.375 gm/ Sodium Chloride IVPB Infused Q6H MARLYN Infusion Insulin Aspart 0 units 08/01/24 22:00 08/02/24 00:23 Insulin Aspart 300 Units/3 Ml Pen SC Not Given 0800,1200,1700,2200 [facility] Protocol Metoprolol Tartrate 12.5 mg 08/01/24 22:00 08/02/24 00:23 Metoprolol 12.5 Mg Tab PO Not Given Q6H MARLYN Sodium Chloride 0 ml 08/01/24 11:50 08/01/24 20:45 Normal Saline Flush 10 Ml Syr IVP 30 ml PRN PRN Administration IV IV Catheter Type [Left Wrist] Saline Lock IV Catheter Gauge [Left Wrist] 18 Diet Orders Category Date Time Status Diabetes Consistent CHO/Heart Healthy [DIET] Nutrition 08/02/24 Breakfast Active Nothing Per Oral [DIET] Nutrition 08/02/24 Breakfast Active Diagnostics 08/02/24 08/01/24 08/01/24 Range/Units 05:35 14:40 14:10 WBC Pending (4.4-10.8) 10^3/uL RBC Pending (4.36-5.78) 10^6/uL Hgb Pending (13.5-17.5) g/dL Hct Pending (40.0-50.0) % MCV Pending (80-95) fL MCH Pending (27.0-33.0) pg MCHC Pending (32.0-36.0) % RDW Pending (11.8-14.1) % Plt Count Pending (130-400) 10^3/uL MPV Pending (8.0-11.0) fL Immature Gran % % Neutrophils % % Lymphocytes % % Monocytes % % Eosinophils % % Basophils % % Nucleated RBC % (0.0-0.3) % Absolute Neutrophils (1.2-6.7) 10^3/uL Absolute Lymphocytes (1.2-3.4) 10^3/uL Absolute Monocytes (0.1-0.8) 10^3/uL Absolute Eosinophils (0.0-0.7) 10^3/uL Absolute Basophils (0.0-0.2) 10^3/uL RBC Morphology Hypochromasia ESR (0-20) mm/hr VBG Lactate (<or=2.0) mmol/L Sodium Pending (136-145) mmol/L Potassium Pending (3.5-5.1) mmol/L Chloride Pending (98-107) mmol/L Carbon Dioxide Pending (21.0-32.0) mmol/L Anion Gap Pending (3-11) mmol/L BUN Pending (7-18) mg/dL Creatinine Pending (0.70-1.30) mg/dL Est GFR (CKD-EPI 2020) Pending (mL/min/1.73m2) Glucose Pending (74-106) mg/dL Calcium Pending (8.5-10.1) mg/dL Magnesium Pending Total Bilirubin Pending (0.2-1.0) mg/dL AST Pending (15-37) U/L ALT Pending (16-63) U/L Alkaline Phosphatase Pending (46-116) U/L C-Reactive Protein (<or=0.5) mg/dL Total Protein Pending (6.4-8.2) g/dL Albumin Pending (3.4-5.0) g/dL Urine Color Yellow (Yellow) Urine Clarity Clear (Clear) Urine pH 5.5 (5-8) Ur Specific Conception <= 1.005 (1.005-1.025) Urine Protein Negative (Neg-Trace) mg/dL Urine Ketones Negative (Negative) mg/dL Urine Blood Negative (Negative) Urine Nitrite Negative (Negative) Urine Bilirubin Negative (Negative) Urine Urobilinogen 0.2 (Up to 0.2) mg/dL Ur Leukocyte Esterase Negative (Negative) Urine Glucose Negative (Negative) mg/dL COVID-19 Source SARS-CoV-2 (PCR) (Negative) Influenza Type A (PCR) (Negative) Influenza Type B (PCR) (Negative) RSV (PCR) (Negative) ABO/Rh O Positive Antibody Screen NEGATIVE 08/01/24 08/01/24 08/01/24 Range/Units 14:00 10:23 10:19 WBC 14.16 H (4.4-10.8) 10^3/uL RBC 2.77 L (4.36-5.78) 10^6/uL Hgb 7.2 L (13.5-17.5) g/dL Hct 23.0 L (40.0-50.0) % MCV 83 (80-95) fL MCH 26.0 L (27.0-33.0) pg MCHC 31.3 L (32.0-36.0) % RDW 16.9 H (11.8-14.1) % Plt Count 258 (130-400) 10^3/uL MPV 10.6 (8.0-11.0) fL Immature Gran % 1.3 % Neutrophils % 88.3 % Lymphocytes % 3.0 % Monocytes % 7.1 % Eosinophils % 0.2 % Basophils % 0.1 % Nucleated RBC % 0.0 (0.0-0.3) % Absolute Neutrophils 12.50 H (1.2-6.7) 10^3/uL Absolute Lymphocytes 0.42 L (1.2-3.4) 10^3/uL Absolute Monocytes 1.01 H (0.1-0.8) 10^3/uL Absolute Eosinophils 0.03 (0.0-0.7) 10^3/uL Absolute Basophils 0.01 (0.0-0.2) 10^3/uL RBC Morphology See Below Hypochromasia 2+ ESR 49 H (0-20) mm/hr VBG Lactate 2.1 2.9 H* (<or=2.0) mmol/L Sodium 133 L (136-145) mmol/L Potassium 3.7 (3.5-5.1) mmol/L Chloride 97 L (98-107) mmol/L Carbon Dioxide 29.1 (21.0-32.0) mmol/L Anion Gap 6.9 (3-11) mmol/L BUN 47 H (7-18) mg/dL Creatinine 1.8 H (0.70-1.30) mg/dL Est GFR (CKD-EPI 2020) 39.01 (mL/min/1.73m2) Glucose 143 H (74-106) mg/dL Calcium 9.4 (8.5-10.1) mg/dL Magnesium Total Bilirubin 0.3 (0.2-1.0) mg/dL AST 18 (15-37) U/L ALT 16 (16-63) U/L Alkaline Phosphatase 70 (46-116) U/L C-Reactive Protein > 25.00 H (<or=0.5) mg/dL Total Protein 6.2 L (6.4-8.2) g/dL Albumin 2.5 L (3.4-5.0) g/dL Urine Color (Yellow) Urine Clarity (Clear) Urine pH (5-8) Ur Specific Conception (1.005-1.025) Urine Protein (Neg-Trace) mg/dL Urine Ketones (Negative) mg/dL Urine Blood (Negative) Urine Nitrite (Negative) Urine Bilirubin (Negative) Urine Urobilinogen (Up to 0.2) mg/dL Ur Leukocyte Esterase (Negative) Urine Glucose (Negative) mg/dL COVID-19 Source Nasopharynx SARS-CoV-2 (PCR) Negative (Negative) Influenza Type A (PCR) Negative (Negative) Influenza Type B (PCR) Negative (Negative) RSV (PCR) Negative (Negative) ABO/Rh Antibody Screen 08/01/24 16:27 Wound Culture - Pending Ankle - Left Joint Gram Stain - Final 08/01/24 11:02 Blood Culture - Pending Blood 08/01/24 10:23 Blood Culture - Pending Blood Ixthx-wd-Iber Documentation Fingerstick Glucose Start: 08/01/24 20:32 Freq: AC & HS Status: Active Protocol: Activity Type Activity Date Activity User E-sign Co-sign Detail Recorded Client Recorded Date Recorded By Document 08/01/24 22:40 BKG DAEMON(3) [id number] 08/01/24 22:41 BKG DAEMON(4) Intake and Output - 24 Hour Total 08/01/24 09:40 thru 08/02/24 00:24 Intake Total 1600.000 Balance 1600.000 Weight 94.801 kg Intake: IV 1600.000 Other: Urine Color Pale Yellow Urine Appearance Clear # Bowel Movements 2 Falls Risk Assessment History of Falls No History 08/01/24 10:04 Contributing Factors Unstable,Impairments 08/01/24 10:04 Ambulatory Aids Uses ambulatory device 08/01/24 10:04 Tubes/Lines None 08/01/24 10:04 Gait Evaluation W/any additional score 08/01/24 10:04 Cognition No cognitive impairment 08/01/24 10:04 Fall Total Score 41 08/01/24 10:04 Level of Risk Moderate Risk 08/01/24 10:04 Problems (Last Updated 08/01/24 @ 19:16 by Manoj Thomas) PAD (peripheral artery disease) (Chronic) Hyperlipidemia (Chronic) Type 2 diabetes mellitus (Chronic) HTN (hypertension) (Chronic) Sepsis (Acute) DAKOTA (acute kidney injury) (Acute) Non-healing ulcer of left foot with necrosis of bone (Acute) Non-healing ulcer of left ankle with necrosis of bone (Acute) Peripheral arterial disease with history of revascularization (Acute) Acute osteomyelitis of left talus (Acute) Osteomyelitis of left tibia (Acute) Severe sepsis (Acute) v v v v v v v v v Sending and/or Receiving Nurses: Please use comment section below to note any information pertinent to the patient hand-off not included above. Information / Comments: Pt here for wound on foot. being transported to [facility] in the AM Report received from: mamta DUNBAR
[2024-08-02] MEDS: PIPERACILLIN/TAZO 3.375 GM in Normal Saline 50 ML IVPB ×2 (03:27→12:18)
[2024-08-02] MEDS: Mylanta Suspension 30 ML CUP PO (06:15)
[2024-08-02] MEDS: Heparin 5,000 UNITS/ML VIAL 5000 UNITS SC (06:16)
[2024-08-02] MEDS: Normal Saline Flush 10 ML SYR IVP ×2 (06:16→08:05)
[2024-08-02] MEDS: Acetaminophen 325 MG TAB PO (06:22)
--- NOTE | 2024-08-02 06:45 | NUR.NOTE ---
dressing to left foot is saturated with sanguineous drainage mixed with iodine that provider applied to wound. Outer kerlix and gauze changed. secured with tape. wound to right inguinal area dressing changed. minimal sanguineous drainage on old dressing.
[2024-08-02 06:58] LABS: ALT 16 U/L (16-63); AST 19 U/L (15-37); Albumin 2.1 g/dL (3.4-5.0); Alkaline Phosphatase 70 U/L (46-116); Anion Gap 6.7 mmol/L (3-11); BUN 38 mg/dL (7-18); Bilirubin, Total 0.3 mg/dL (0.2-1.0); CO2 26.3 mmol/L (21.0-32.0); CREATININE 1.4 mg/dL (0.70-1.30); Calcium 8.8 mg/dL (8.5-10.1); Chloride 99 mmol/L (98-107); Estimated GFR 52.74 (mL/min/1.73m2); Glucose 77 mg/dL (74-106); Magnesium 1.9 mg/dL (1.8-2.4); Potassium 3.5 mmol/L (3.5-5.1); Sodium 132 mmol/L (136-145); Total Protein 5.6 g/dL (6.4-8.2)
[2024-08-02 06:59] LABS: HCT 21.5 % (40.0-50.0); MCH 25.5 pg (27.0-33.0); MCHC 30.7 % (32.0-36.0); MCV 83 fL (80-95); MPV 11.3 fL (8.0-11.0); Platelet Count 233 10^3/uL (130-400); RBC 2.59 10^6/uL (4.36-5.78); RDW 16.9 % (11.8-14.1); RDW-SD 51.2 fL; WBC 8.27 10^3/uL (4.4-10.8)
[2024-08-02 07:12] LABS: HGB 6.6 g/dL (13.5-17.5)
[2024-08-02] MEDS: Gabapentin 100 MG CAP PO (08:05)
[2024-08-02] MEDS: Multivitamin TAB 1 TAB PO (08:05)
--- NOTE | 2024-08-02 12:06 | PHA.REVIEW2 ---
Pharmacy Admission Review Admission Clinical Review Admission Pharmacy Review: Sepsis (Acute) DAKOTA (acute kidney injury) (Acute) Non-healing ulcer of left foot with necrosis of bone (Acute) Non-healing ulcer of left ankle with necrosis of bone (Acute) Peripheral arterial disease with history of revascularization (Acute) Acute osteomyelitis of left talus (Acute) Osteomyelitis of left tibia (Acute) Severe sepsis (Acute) codeine Allergy (Verified 08/01/24 09:52) rash furosemide (From Lasix) Allergy (Verified 08/01/24 09:52) rash hydrochlorothiazide Allergy (Verified 08/01/24 09:52) rash turkey Adverse Reaction (Verified 08/01/24 09:52) Diarrhea Resuscitation Status Full Code Height 5 ft 7 in Weight 94.8 kg Pharmacy Admission Review Renal Dosing Renal Dosing: BUN 38 mg/dL (7-18) H 08/02/24 06:00 Creatinine 1.4 mg/dL (0.70-1.30) H 08/02/24 06:00 Medications needing adjustments: Reviewed Anticoagulation Anticoagulation: Recommended to hold heparin sq d/t Hgb=6.6. Hgb 6.6 g/dL (13.5-17.5) L* 08/02/24 06:00 Hct 21.5 % (40.0-50.0) L 08/02/24 06:00 Plt Count 233 10^3/uL (130-400) 08/02/24 06:00 Creatinine 1.4 mg/dL (0.70-1.30) H 08/02/24 06:00 DVT Prophylaxis: Reviewed Medications: Heparin Opiate Usage Evaluate Pain Scale/Pains Meds: Reviewed Scheduled Bowel Reg ordered if on Opiates?: Yes Relevant Labs Relevant Labs: ESR 49 mm/hr (0-20) H 08/01/24 10:23 Sodium 132 mmol/L (136-145) L 08/02/24 06:00 Potassium 3.5 mmol/L (3.5-5.1) 08/02/24 06:00 Chloride 99 mmol/L (98-107) 08/02/24 06:00 Magnesium 1.9 mg/dL (1.8-2.4) 08/02/24 06:00 C-Reactive Protein > 25.00 mg/dL (<or=0.5) H 08/01/24 10:23 Electrolytes, C-Reactive P, ESR: Reviewed DM Control DM Control: finger wgaad=303. DM Control: Reviewed Insulin Dosing, Diabetic Medication: On sliding scale insulin coverage while inpatient. Cardiac Review BP, HR, EF%: Reviewed QTc Review QTc: N/A List meds needing interventions: no ekg. IV to PO Switch IV Medications: Reviewed Home Meds Home Med List reviewed: Reviewed Relevent Home Meds Not ordered & why?: holding home glipizide (on sliding scale), lisinopril, bumex, and lisinopril due to DAKOTA and low BP Current Meds Current Medication Order Review: Reviewed Pharmacy Antibiotic Review Relevant Labs: Scr improved to 1.4. Increased vanco to 1.5g q24h today. Proteus sp and Gram positive aleisha growing from left ankle joint wound culture. On pip/tazo + vanco for now. Pharmacy Antibiotic Activity: Abx regimen adjustment
--- NOTE | 2024-08-02 12:26 | NUR.NOTE ---
Nursing Note:Jeremy hung at 11:30. Dawn, of pt, turned off pump when done without calling for staff. Pt stated I just didn't want to listen to it beep. Education provided on the importance of calling for staff when medications are done running. Pt stated I thought you were at lunch or something. Pt educated on the importance of using the call light, and a staff member will come if light is used. Call light use reinforced for blood products that will finish shortly. verbalized understanding.
[2024-08-02 12:43] LABS: Iron 5 ug/dL (65-175); Total Iron Binding Capacity 188 ug/dL (250-450); Transferrin Sat 3 % (20-55)
--- NOTE | 2024-08-02 12:54 | NUR.NOTE ---
Nursing Note: After education on not turning off pumps, including blood products, pt's dawn rang to let staff know pump was done. EDA augustin let this RN know blood products were finished. While RN was en route to the room, Dawn turned the pump off, despite clear instruction by RN. Education reinforced. stated I won't do it again. Charge nurse notified.
[2024-08-02] MEDS: VANCOMYCIN/WATER (PEG) 1.5 GM/300 ML BAG IVPB (14:08)
[2024-08-02 14:20] LABS: HCT 24.9 % (40.0-50.0); HGB 7.8 g/dL (13.5-17.5)
--- NOTE | 2024-08-02 16:33 | W.PM.DS.N ---
Date of service: 08/02/24 Time of Service: 16:34 DS: Diagnosis Discharge Diagnosis (1) Sepsis: Status: Acute (2) DAKOTA (acute kidney injury): Status: Acute (3) Acute osteomyelitis of left talus: Status: Acute (4) PAD (peripheral artery disease): Status: Chronic (5) Type 2 diabetes mellitus: Status: Chronic (6) Hyperlipidemia: Status: Chronic (7) HTN (hypertension): Status: Chronic Discharge Plan Disposition Patient Disposition: Transfer-Acute Inpatient Care Specific Acute Inpt Facility: [facility] Condition: Stable Discharge Details Reason For Visit: Sepsis,Osteomyelitis left lower Extremity,DAKOTA,MD Admit Date/Time: 08/01/24 19:33 Admit Provider: Manoj Thomas Attending Provider: Manoj Thomas Primary Care Provider: Wanda Cespedes V Hospital Course Hospital Course: 74-year-old male with type 2 DM, CAD, tobacco use, and PAD who recently came back to [place] from [facility] where he has had recent cardiac intervention with planned CABG converting to cardiac catheterization with stenting because of complications and wounds over his feet with the right foot healed after revascularization having 100% improvement and blood flow but the left foot having ongoing wounds over his ankle and heel which are not closing since 2024. He presented to the ED with 1-2 weeks of foul-smelling discharge and new fevers to 101 at home. He was evaluated in the ED by podiatry who recommended transfer to [facility] for revascularization. He was accepting pending bed availability to the Vascular service under Dr. Sotelo. He was admitted and treated for sepsis with pip tazo and vancomycin until transfer. His CRP was >25 on admission and WBC was 14.16 and did improve to 8.27. XR, CT, and MRIs were done. MRI was suspicious for osteomyelitis and devloping abscess. . He had an anemia wiht hgb 7.2, which dipped to 6.8 and he was given 1 unit PRBC which increased the hgb to 7.8. He mentioned he received 3 units when he was last admitted in [place] and they never figured out where the blood was going. No source of bleeding was noted. He was very iron deficient with transferrin saturation of 3%. IV iron could be considered to decrease need for transfusion, though it can theoretically increase infection risk. He had an DAKOTA with creatine to 1.8, which improved to 1.4 overnight. U/a was bland. He had a distended bladder on CT and jiménez was placed. Home Meds and New Rx's Prescriptions: No Action gabapentin 100 mg capsule 100 mg PO TID Patient Comments: 100 mg AM 200 mG 1600 300 mG bedtime bumetanide 1 mg tablet 1 mg PO DAILY amlodipine 2.5 mg tablet 2.5 mg PO DAILY lisinopril 20 mg tablet 20 mg PO DAILY aspirin 81 mg capsule 81 mg PO DAILY atorvastatin 80 mg tablet 80 mg PO DAILY clopidogrel 75 mg tablet 75 mg PO DAILY multivitamin Tablet 1 tab PO DAILY omega 1-zot-rdp-fish oil [Fish Oil] 1,200 (144-216) mg capsule PO DAILY metoprolol succinate 25 mg tablet extended release 24 hr 25 mg PO DAILY glipizide 5 mg tablet extended release 24hr 5 mg PO DAILY Patient Comments: TAKE 1 TABLET BY MOUTH ONCE DAILY gabapentin 300 mg capsule 300 mg PO DAILY PRN Patient Comments: TAKE 1 CAPSULE BY MOUTH ONCE DAILY NEEDED FOR WORSE RLS/NEUROPATHY Discharge Instructions Activity:: bed bound Equipment/Supplies:: No Equipment Needed Diet:: Carb Counting Discharge Orders Discharge Orders: Discharge Order (Routine); Ordered 08/02/24 Ordered By: Rylan Griffin DS: Summary Time Spent with Patient providing and/or coordinating discharge services: Greater than 30 minutes Status at Discharge Functional status at discharge: wheelchair bound Overall status at discharge: patient is not back to baseline Mental Status: mental status grossly normal Speech and Movement: speech and movement normal Mood: congruent mood Affect: normal affect Quality:SDOH Health Related Social Needs: No Data to Display Exam Narrative Exam Narrative: General: Patient appears appropriate for age, alert and oriented x 3 and in no acute distress. Lungs: Fair aeration and clear to oscillation percussion with no focalizing rales or rhonchi. No expiratory wheeze. Heart: Regular rate and rhythm with no appreciable murmur or gallop. Abdomen: Obese contour, soft and nontender Extremities: Without clubbing, cyanosis or grossly pitting edema with dry bandages over both feet and ankles. Bandages over wounds not removed (see open wound photo on podiatry note 08/01) Psych Mental Status: mental status grossly normal Speech and Movement: speech and movement normal Mood: congruent mood Affect: normal affect DS: Data Vitals/I&O Vitals and I&O: Vital Signs Temperature 36.8 C 08/02/24 14:53 Temperature Source Temporal Artery Scan 08/02/24 14:53 Pulse 62 08/02/24 14:53 Pulse Rhythm Irregular 08/01/24 20:18 Pulse 78 08/01/24 19:46 Respiratory Rate 16 08/02/24 14:53 Respiratory Effort Normal, Non-Labored 08/01/24 20:18 Respiratory Depth Normal 08/01/24 20:18 Respiratory Pattern Normal 08/01/24 20:18 Blood Pressure 107/56 L 08/02/24 14:53 Blood Pressure Mean 73 08/02/24 14:53 Blood Pressure Position Sitting 08/01/24 10:04 Pulse Oximetry 99 08/02/24 14:53 Oxygen Delivery Method Room Air 08/02/24 14:53 Oxygen Flow Rate 0 08/02/24 14:53 Pain Level 2 08/02/24 06:44 Comment RN notified 08/02/24 07:31 Intake & Output 08/01/24 08/02/24 08/02/24 23:59 11:59 23:59 Intake Total 843.333 / 9656.682 0874 / 1660 300 / 1660 Output Total 900 / 900 425 / 825 400 / 825 Balance -56.667 / 660.000 935 / 835 -100 / 835 Weight 94.801 kg 94.8 kg Intake: IV 843.333 / 9723.834 3696 / 1160 50 / 1160 Blood Product 250 / 500 250 / 500 Rbc Leuko Reduced Irradiated 250 / 500 250 / 500 Unit [id number] Output: Urine 900 / 900 425 / 825 400 / 825 Other: Urine Color Yellow Straw Yellow Urine Appearance Clear Clear Clear Urine Odor None Stool Size Moderate Stool Characteristics Soft Liquid Brown # Bowel Movements 2 Data Completed and Pending Labs on day of discharge: Labs from last 24 hours 08/02/24 08/02/24 08/01/24 14:00 06:00 14:40 WBC 8.27 RBC 2.59 L Hgb 7.8 L 6.6 L* Hct 24.9 L 21.5 L MCV 83 MCH 25.5 L MCHC 30.7 L RDW 16.9 H Plt Count 233 MPV 11.3 H Sodium 132 L Potassium 3.5 Chloride 99 Carbon Dioxide 26.3 Anion Gap 6.7 BUN 38 H Creatinine 1.4 H Est GFR (CKD-EPI 2020) 52.74 Glucose 77 Calcium 8.8 Magnesium 1.9 Iron 5 L TIBC 188 L Transferrin % Sat 3 L Total Bilirubin 0.3 AST 19 ALT 16 Alkaline Phosphatase 70 Total Protein 5.6 L Albumin 2.1 L ABO/Rh O Positive Blood Type Recheck O Positive Antibody Screen NEGATIVE Crossmatch See Detail Preliminary micro results at discharge 08/01/24 11:02 Blood Blood Culture - Preliminary NO GROWTH 24 HOURS 08/01/24 10:23 Blood Blood Culture - Preliminary NO GROWTH 24 HOURS 08/01/24 16:27 Ankle - Left Joint Wound Culture - Preliminary Proteus species Gram positive aleisha, mixed PFSH All Active Problems (Updated 08/01/24 @ 19:16 by Manoj Thomas) PAD (peripheral artery disease) (Chronic) Hyperlipidemia (Chronic) Type 2 diabetes mellitus (Chronic) HTN (hypertension) (Chronic) Sepsis (Acute) DAKOTA (acute kidney injury) (Acute) Non-healing ulcer of left foot with necrosis of bone (Acute) Non-healing ulcer of left ankle with necrosis of bone (Acute) Peripheral arterial disease with history of revascularization (Acute) Acute osteomyelitis of left talus (Acute) Osteomyelitis of left tibia (Acute) Severe sepsis (Acute) Anemia (Chronic) Acute osteomyelitis of left calcaneus (Acute) Social History Smoking risk assessment performed?: No Alcohol Intake: former Housing: house Time Spent with Patient Time Spent with Patient: 45-69 minutes Time was spent: preparing to see the patient(eg.review tests), obtaining and/or reviewing separately otained hiistory, ordering medications,tests, procedures, referring, communicating with other health home care specialist, indepentently interpreting results, counseling the patient and care coordination
--- NOTE | 2024-08-02 16:59 | PDOC.CMPRO ---
Date of service: 08/02/24 Time of Service: 16:59 Care Management Progress Note Progress Note Text Progress Note Text: Alonzo presented to the ED yesterday evening after a visit with of podiatry. He has osteomyelitis of the left tibia and talus. He has non haling ulcers of his left ankle with necrosis to the bone, and an ulcer of that same foot with necrosis to the bone. Winston does have a history of of PAD. He was admitted and tx for sepsis while awaiting a bed at [facility] vascular service. Winston and his were pleasant when CM met with them. Winston stated that he has been chronically ill for the last 6 month, requiring several hospitalizations and testings which were done at his winter home in the [place], [place] area. They were anxiously awaiting the bed at [facility]. Winston is worried that he will lose his leg. Discharge Potential Discharge Needs: Other ([facility] transfer) Anticipated Barriers to Discharge: None Identified Patient/Family Education Needs: Review discharge instructions, discuss Ask Me Three Transportation: EMS (as coordinated by the RN tour production supervisor) Plan: Winston now has a bed at [facility]. He will transfer via EMS this evening, as coordinated by the nursing tour production supervisor. Social Determinants of Health Screening Will the Patient Participate in the Screening?: Unable to obtain
--- NOTE | 2024-08-02 17:49 | NUR.NOTE ---
Nursing Note: Handoff done to Jo cafeteria operator at [facility]. LOw b/p, abx, ambulation, neuropathy, DM2 discussed
== END 2024-08-02 17:28 | disposition short-term general hospital (02) | DRG 872 ==
LOC: ER 19:16 → MS 20:25
PROVIDERS: Emergency Medicine; Admitting Provider Family Medicine; Emergency Provider Emergency Medicine; PCP Family Medicine; Responsible Provider Family Medicine; Visit Provider Family Medicine
DX: A41.9 Sepsis, unspecified organism; M86.172 Other acute osteomyelitis, left ankle and foot; L97.324 Non-pressure chronic ulcer of left ankle with necrosis of bone; M60.062 Infective myositis, left lower leg; N17.9 Acute kidney failure, unspecified; R65.20 Severe sepsis without septic shock; I73.9 Peripheral vascular disease, unspecified; L97.524 Non-pressure chronic ulcer of other part of left foot with necrosis of bone; I10 Essential (primary) hypertension; E78.5 Hyperlipidemia, unspecified; I25.10 Atherosclerotic heart disease of native coronary artery without angina pectoris; F17.210 Nicotine dependence, cigarettes, uncomplicated; Z95.828 Presence of other vascular implants and grafts; D64.9 Anemia, unspecified; M1A.0721 Idiopathic chronic gout, left ankle and foot, with tophus (tophi); Z79.84 Long term (current) use of oral hypoglycemic drugs; E11.9 Type 2 diabetes mellitus without complications
CPT/HCPCS: 97597; 00123; 36415; 51702; 80053; 85027; 85652; 86850; 86900; 86901; 86920; 87040; 87077; 87637; 96361; 96365; 96366; 96367; 96368; 99223; 99291; 71045; 73590; 73630; 73650; 73720; 73723; 74177; 81003; 82272; 83540; 83550; 83605; 83735; 85014; 85018; 85025; 86140; 87070; 87186; 87205; 99239; J0131; J1644; J1815; J2543; J3372; J3490; P9016

== ENCOUNTER 2024-10-31 11:24 | Outpatient (REF) | payer MEDICARE, BC, SELFPAY ==
[2024-11-01 14:34] LABS: Helicobacter pylori Ag, Feces Negative (Negative)
== END 2024-10-31 11:25 | disposition home or self-care (01) ==
LOC: NCHCN 11:24
PROVIDERS: PCP Family Medicine; Visit Provider Family Medicine
DX: R14.0 Abdominal distension (gaseous) (principal)
CPT/HCPCS: 87338

== ENCOUNTER 2024-11-22 02:10 | Outpatient (CLI) | payer MEDICARE, BC, SELFPAY ==
--- NOTE | 2024-11-22 | DI.RAD_ITS ---
Exam(s) XR FOOT LT COMPLETE EXAM: XR FOOT LT COMPLETE CLINICAL HISTORY: DIABETIC ULCER TOE LT FOOT, W NECROSIS BONE,E08.621,l97.524,DIABETIC ULCER. TECHNIQUE: 2D digital imaging was performed of the left foot. Three images were obtained. AP, oblique and lateral views were obtained. COMPARISON: CR XR FOOT LT COMPLETE from 08/01/2024 FINDINGS: BONES: No acute fracture is present. No bony destructive lesion is seen. JOINTS: No dislocation present. There are degenerative changes seen in the foot characterized by joint space narrowing and osteophytes. The findings are most marked at the 1st metatarsophalangeal joint. SOFT TISSUE: There is soft tissue swelling of the foot. No soft tissue gas is seen. IMPRESSION: No radiographic evidence to suggest osteomyelitis is seen at this time. If symptoms persist, an MRI should be obtained for further evaluation. DATA REPOSITORY: RADIATION DOSE DELIVERED:
== END 2024-11-22 02:30 ==
PROVIDERS: PCP Family Medicine; Visit Provider Family Medicine
DX: L97.422 Non-pressure chronic ulcer of left heel and midfoot with fat layer exposed (principal); E08.621 Diabetes mellitus due to underlying condition with foot ulcer
CPT/HCPCS: 73630

== ENCOUNTER 2024-11-22 15:02 | Outpatient (CLI) | payer MEDICARE, BC, SELFPAY ==
--- NOTE | 2024-11-22 | DI.RAD_ITS ---
Exam(s) XR HAND LT COMPLETE XR WRIST LT COMPLETE EXAM: XR WRIST LT COMPLETE and XR hand LT complete CLINICAL HISTORY: M25.442 Effusion lt hand, Swelling of joint. TECHNIQUE: 2D digital imaging was performed of the left hand and wrist. Six images were obtained. PA, oblique and lateral views were obtained. COMPARISON: There are no priors for comparison. FINDINGS: BONES: No acute fracture is present. No bony destructive lesion is seen. JOINTS: There is a complete dislocation of the radiocarpal joint. The entire wrist (scaphoid, lunate and triquetral bone) is dislocated anterior to the distal radius and ulna. SOFT TISSUE: There is soft tissue swelling around the wrist. IMPRESSION: Volar radiocarpal dislocation. DATA REPOSITORY: RADIATION DOSE DELIVERED:
== END 2024-11-22 15:22 ==
LOC: DI 15:02
PROVIDERS: PCP Family Medicine; Visit Provider Family Medicine
DX: S63.025A Dislocation of radiocarpal joint of left wrist, initial encounter (principal); X58.XXXA Exposure to other specified factors, initial encounter
CPT/HCPCS: 73110; 73130; 73630

== ENCOUNTER 2024-11-25 06:53 | Outpatient (RCR) | payer MEDICARE, BC, SELFPAY ==
[2024-11-25] VITALS (10 sets, daily range): BP systolic 104–138; BP diastolic 47–81; PULSE 51–73; RESP 17–19; TEMP 36.4–37; O2SAT 97–100
[2024-11-25] MEDS: Normal Saline Flush 10 ML SYR IVP (08:38)
[2024-11-25 09:08] LABS: HCT 25.9 % (40.0-50.0); HGB 7.5 g/dL (13.5-17.5); MCH 21.8 pg (27.0-33.0); MCHC 29.0 % (32.0-36.0); MCV 75 fL (80-95); MPV 10.9 fL (8.0-11.0); Platelet Count 370 10^3/uL (130-400); RBC 3.44 10^6/uL (4.36-5.78); RDW 18.6 % (11.8-14.1); RDW-SD 51.1 fL; WBC 10.46 10^3/uL (4.4-10.8)
[2024-11-25] MEDS: Acetaminophen 325 MG TAB (10:27)
== END 2024-12-03 23:59 | disposition home or self-care (01) ==
LOC: INF 06:53
PROVIDERS: PCP Family Medicine; Visit Provider Family Medicine
DX: D64.9 Anemia, unspecified (principal)
CPT/HCPCS: 36430; 85027; 86850; 86900; 86901; 86920; P9016

== ENCOUNTER → 2024-12-03 09:41 | Outpatient (BNVA) | payer MEDICARE, BC, SELFPAY | PROVIDERS: PCP Family Medicine; Referring Provider Family Medicine; Visit Provider Student in an Organized Health Care Education/Training Program | DX: D64.9 Anemia, unspecified (principal); R10.9 Unspecified abdominal pain | CPT/HCPCS: 99213 ==

== ENCOUNTER 2024-12-16 18:02 | Observation (INO) | payer MEDICARE, BC, SELFPAY ==
[2024-12-16] VITALS (43 sets, daily range): BP systolic 125–157; BP diastolic 37–121; PULSE 50–86; RESP 8–25; TEMP 36.4; O2SAT 81–100
--- NOTE | 2024-12-16 17:45 | RT.EKG_ITS ---
APPROVED REPORT Exam: Resting ECG Reason for Exam: Seizure Patient Location: E HR:69 bpm ECG Measurements Heart Rate 69 AXIS RI 103 P 263 QRSd 107 QRS 66 QT 413 T -67 QTc 443 Conclusion Ectopic atrial rhythm...abnormal P axis, normal rate Repol abnrm suggests ischemia, diffuse leads...ST-T neg, ant/lat/inf no ST segment or T wave abnormalities to suggest occlusive VT no priors available for comparison
--- NOTE | 2024-12-16 18:15 | DI.CT_ITS ---
Exam(s) CT CHEST/ABD/PEL W EXAM: CT CHEST/ABD/PEL W CLINICAL HISTORY: seizure, abdominal pain. TECHNIQUE: Imaging Protocol: Axial computed tomography images with coronal and sagittal reformatted images were created and reviewed. Computer aided detection (CAD) was utilized. Images of the thoracic and lumbar spine were reconstructed in axial, coronal and sagittal planes in bone and soft tissue algorithm. CONTRAST MATERIAL: Intravenous: Omnipaque 350 Contrast volume:75 ml Oral: no COMPARISON: CT CT ABDOMEN PELVIS W from 08/01/2024 FINDINGS: CHEST: Pulmonary parenchyma: No consolidation. No dominant measurable mass. Upper lobe emphysematous changes. Tracheobronchial tree: No bronchiectasis. No mucous plugging.No bronchial wall thickening. Pleura: No effusion or pneumothorax. Mediastinum: Within normal limits. Pulmonary arteries: No visible emboli. Main pulmonary artery is dilated at 3.4 cm which could indicate pulmonary hypertension. Cardiovascular: Heart size is normal. Severe coronary artery calcifications versus stents. No pericardial effusion. The ascending aorta measures 3.6 cm. The descending aorta measures 2.4 cm. Severe atherosclerotic changes. Bones: Unremarkable degenerative disc changes. No lytic or blastic lesions. No compression fractures. Soft tissues: Unremarkable. ABDOMEN and PELVIS: Liver: Normal density. No suspicious mass. Gallbladder and biliary tract: No evidence of stones or wall thickening. No biliary dilatation. Pancreas: Normal density, no abnormal calcifications or inflammatory process. Spleen: Normal. Kidneys: Normal size, contour and axis. No radiodense stones. No obstructive uropathy. No suspicious masses seen. Adrenal glands: No masses seen. Vasculature: Bilateral iliac artery stents appear patent. Slight outpouching of the of the distal abdominal aorta to 2.3 cm compared to 1.9 cm. There is heavy calcification in the mid SMA which remains patent. Stents are also noted in the common femoral arteries.. Lymph nodes: Within normal limits. Soft tissues: Fat containing umbilical hernia. Bladder: Unremarkable. Bowel: Sigmoid diverticulosis. No evidence of diverticulitis. Increased quantity of stool seen in the rectum. No obstruction or bowel wall thickening. Peritoneal cavity: No ascites. No focal collection. No mesenteric inflammatory response. No free air. Bones: Advanced degenerative changes in the lumbar spine. No evidence of fracture. Reproductive organs: Prostate mildly enlarged. IMPRESSION: No acute abnormality in the chest, abdomen or pelvis. The preliminary [facility] report was reviewed. RADIATION DOSE DELIVERED: 1,369.09mGy.cm Total DLP DATA REPOSITORY: All CT scans at this facility are submitted to the National Radiology Data Registry (NRDR) Dose Index Registry (DIR) with the [employer] (A[employer]). RADIATION OPTIMIZATION: All CT scans at this facility use at least one of these dose optimization techniques: automated exposure control; mA and/or kV adjustment per patient size (includes targeted exams where dose is matched to clinical indication); or iterative reconstruction.
--- NOTE | 2024-12-16 18:15 | DI.CT_ITS ---
Exam(s) CT HEAD CERVICAL SPINE WO EXAM: CT HEAD CERVICAL SPINE WO CLINICAL HISTORY: seizure. TECHNIQUE: Imaging Protocol: Axial computed tomography images with coronal and sagittal reformatted images were created and reviewed COMPARISON: No exams were available for comparison FINDINGS: Head CT Ventricles and Extra axial spaces: Normal in size and morphology for the patient's age. Hemorrhage: None. Cerebral parenchyma: No evidence of mass or acute infarct. Mild atrophy consistent with the age patient's age. Mild white matter changes consistent with vascular disease. Midline shift: None. Brainstem/Cerebellum: Normal. Calvarium: Normal. Visualized Paranasal sinuses/Mastoids: Clear. Soft tissues: Unremarkable. Cervical Spine CT BONES: Vertebral body heights are maintained. Alignment is normal. There is no evidence of acute fracture. Advanced degenerative disc changes and facet degenerative changes are seen . SOFT TISSUES: No paraspinal hematoma. The airway appears intact. IMPRESSION: Head CT: No acute abnormality. C-spine CT: Degenerative changes, no acute abnormality. The preliminary [facility] report was reviewed. RADIATION DOSE DELIVERED: 1,208.19mGy.cm Total DLP DATA REPOSITORY: All CT scans at this facility are submitted to the National Radiology Data Registry (NRDR) Dose Index Registry (DIR) with the [employer] (ACR). RADIATION OPTIMIZATION: All CT scans at this facility use at least one of these dose optimization techniques: automated exposure control; mA and/or kV adjustment per patient size (includes targeted exams where dose is matched to clinical indication); or iterative reconstruction.
--- NOTE | 2024-12-16 18:20 | W.ED.GENAD ---
Discharge Plan Disposition Patient Disposition: Admit to [facility] Discharge Details Clinical Impression: Seizure, Elevated troponin Primary Care Provider: Wanda Cespedes V ED Provider: Bre Landeros Home Meds and New Rx's Prescriptions: No Action Eliquis 5 mg tablet 5 mg PO BID gabapentin 100 mg capsule 100 mg PO TID Patient Comments: 100 mg AM 200 mG 1600 300 mG bedtime bumetanide 1 mg tablet 1 mg PO DAILY amlodipine 2.5 mg tablet 2.5 mg PO DAILY lisinopril 20 mg tablet 20 mg PO DAILY atorvastatin 80 mg tablet 80 mg PO DAILY clopidogrel 75 mg tablet 75 mg PO DAILY multivitamin Tablet 1 tab PO DAILY omega 7-ljb-ora-fish oil [Fish Oil] 1,200 (144-216) mg capsule PO DAILY metoprolol succinate 25 mg tablet extended release 24 hr 25 mg PO DAILY glipizide 5 mg tablet extended release 24hr 5 mg PO DAILY Patient Comments: TAKE 1 TABLET BY MOUTH ONCE DAILY gabapentin 300 mg capsule 300 mg PO DAILY PRN Patient Comments: TAKE 1 CAPSULE BY MOUTH ONCE DAILY NEEDED FOR WORSE RLS/NEUROPATHY HPI General Date/Time Provider Initiated Documentation: 12/16/24 18:17. HPI Narrative: Alonzo is a 74-year-old male who presents to the emergency department today for evaluation of seizure. He presents to the ED via EMS accompanied by his Experienced burning indigestion in upper abdomen 2 hours after consuming a hot dog at 1400 hours. Indigestion started around 1600 hours, followed by vomiting and retching. No sweating, chest pain, shortness of breath, or dizziness. reports seizure lasting less than a minute with loss of bladder control at 1630 hours, seizure involved eye rolling, flushing, salivation/gurgling, and unresponsiveness. He became limp and she helped him off the toilet.. Regained alertness within 20-25 minutes. No recall of incident, but felt unwell prior. No recent fevers, chills, headaches, dizziness, vision changes, congestion, sore throat, ear pain, chest pain, or difficulty breathing. Currently has lower abdominal pain, no indigestion. Normal bowel movement yesterday, urinates normally. No history of seizures, no new medications or supplements in past 2 months. PMH: T2DM managed with glipizide, A1c 5. Neuropathy, heart disease, peripheral vascular disease, coronary artery stenting. Anticoagulated on Eliquis and Plavix PAST SURGICAL HISTORY: Dislocated wrist at [facility] for osteo. Three bypasses, stents in mid-left artery, vascular surgery in spring with four stents and three grafts in lower extremities. Related Data Home Medications ?Medication ?Instructions ?Recorded ?Confirmed amlodipine 2.5 mg tablet 2.5 mg PO DAILY 08/01/24 12/03/24 atorvastatin 80 mg tablet 80 mg PO DAILY 08/01/24 12/03/24 bumetanide 1 mg tablet 1 mg PO DAILY 08/01/24 12/03/24 clopidogrel 75 mg tablet 75 mg PO DAILY 08/01/24 12/03/24 gabapentin 100 mg capsule 100 mg PO TID 08/01/24 12/03/24 lisinopril 20 mg tablet 20 mg PO DAILY 08/01/24 12/03/24 multivitamin 1 tab PO DAILY 08/01/24 12/03/24 omega 0-tut-ejs-fish oil 1,200 mg cap PO DAILY 08/01/24 12/03/24 (144 mg-216 mg) capsule (Fish Oil) gabapentin 300 mg capsule 300 mg PO DAILY PRN 08/02/24 12/03/24 glipizide 5 mg tablet, extended 5 mg PO DAILY 08/02/24 12/03/24 release 24 hr metoprolol succinate 25 mg 25 mg PO DAILY 08/02/24 12/03/24 tablet,extended release 24 hr apixaban 5 mg tablet (Eliquis) 5 mg PO BID 12/03/24 12/03/24 Allergies Allergy/AdvReac Type Severity Reaction Status Date / Time ritonavir (From Norvir) Allergy Intermediate Other (See Verified 12/03/24 09:53 Comment) codeine Allergy rash Verified 12/03/24 09:53 furosemide (From Lasix) Allergy rash Verified 12/03/24 09:53 hydrochlorothiazide Allergy rash Verified 12/03/24 09:53 turkey AdvReac Diarrhea Verified 12/03/24 09:53 General Stated Complaint: Seizure RONNY: 3 Exam Narrative Exam Narrative: General Appearance: Normal. Patient alert and oriented x 3 Vital signs: Within normal limits. HEENT: Pupils equal, round, reactive to light. EOMs intact Cardiac: Regular rate and rhythm, normal heart sounds Respiratory: Easy work of breathing, lungs clear to auscultation bilaterally. Gastrointestinal: Abdomen soft, nondistended, mild tenderness in lower abdomen. Back, Musculoskeletal: Strength 5/5 in upper and lower extremities. Sensation grossly intact upper and lower extremities Neurological: Alert and oriented to person, place, time. Cranial nerves II-XII intact. No facial asymmetry. Clear speech. Skin: Warm and dry, no rash. Psychiatric: Normal. Course Vital Signs Vital signs: Vital Signs Pulse 86 12/16/24 18:05 Respiratory Rate 18 12/16/24 18:05 Blood Pressure 136/44 L 12/16/24 18:05 Pulse Oximetry 90 L 12/16/24 18:05 Pulse 86 12/16/24 18:05 Respiratory Rate 18 12/16/24 18:05 Blood Pressure 136/44 L 12/16/24 18:05 Pulse Oximetry 90 L 12/16/24 18:05 Oxygen Delivery Method Room Air 12/16/24 18:05 Oxygen Flow Rate 0 12/16/24 18:05 Medical Decision Making Initial Assessment: 74-year-old male presenting with seizure following indigestion and vomiting. DDx includes but is not limited to: Occult infection such as pneumonia or UTI, diverticulitis, intracranial hemorrhage/mass, electrolyte imbalance, severe anemia, vasovagal syncope, hypoglycemia episode, new onset seizure disorder, toxicologic ED Course: - Blood work performed. -EKG performed - CT abdomen ordered. - Urine sample requested. I independently interpreted the following tests: CBC no of leukocytosis, white cell count 16.05. Anemia improved from previous. CMP notable for slightly elevated BUN to creatinine ratio, (58:1.3). Lactate elevated at 3.9, this decreased to 2.0 on repeat. Troponins elevated from 57 > 150> 559. BNP elevated at 978. EtOH negative CT head and abdomen/pelvis performed, no acute abnormalities noted I did discuss case with Dr. Macias white goods appliance tech. As patient is a poor candidate for cath, observation recommended. She believes that this is unlikely to be a primary cardiac event, but rather elevated troponins in setting of leukocytosis and elevated lactate likely due to seizure. Recommends echo in the morning, monitoring on telemetry, trending troponins until peak. Advises call back if patient develops chest pain or findings on echo Teleneurology consult performed with Dr. Jolley. Question seizure versus vasovagal syncope; recommends MRI and EEG in the morning for further evaluation. If MRI and EEG negative, anticonvulsive therapy not recommended at this time. Discussed case with hospitalist Dr Richards, patient to be admitted to telemetry for testing in the morning Clinical Impression: - Seizure - Elevated troponins Patient consented to the use of [facility] Imaging Data Radiologic Study: Radiologist's impression: PROCEDURE INFORMATION: Exam: CT Head Without Contrast Exam date and time: 12/16/2024 7:21 PM Age: 74 years old Clinical indication: Seizure TECHNIQUE: Imaging protocol: Computed tomography of the head without contrast. Radiation optimization: All CT scans at this facility use at least one of these dose optimization techniques: automated exposure control; mA and/or kV adjustment per patient size (includes targeted exams where dose is matched to clinical indication); or iterative reconstruction. COMPARISON: No relevant prior studies available. FINDINGS: Brain: No acute intracranial hemorrhage. Mild diffuse cerebral atrophy. No acute extra-axial fluid collection. Cerebral ventricles: Ventricular prominence in this patient with mild diffuse cerebral atrophy. Paranasal sinuses: No significant disease of the paranasal sinuses. Mastoid air cells: No mastoiditis. Bones: No acute fracture. Soft tissues: Unremarkable. IMPRESSION: 1. No acute fracture. 2. No acute intracranial findings. PROCEDURE INFORMATION: Exam: CT Cervical Spine Without Contrast Exam date and time: 12/16/2024 7:21 PM Age: 74 years old Clinical indication: Seizure TECHNIQUE: Imaging protocol: Computed tomography of the cervical spine without contrast. Radiation optimization: All CT scans at this facility use at least one of these dose optimization techniques: automated exposure control; mA and/or kV adjustment per patient size (includes targeted exams where dose is matched to clinical indication); or iterative reconstruction. COMPARISON: CR XR CHEST 1V IN DI DEPT 08/01/2024 1:31 PM FINDINGS: Bones: No acute fracture. No subluxation. No significant disc protrusion. No severe spinal canal stenosis. Cervical spine multilevel degenerative / spondylitic changes with multilevel neural foraminal narrowing. Lungs: Not imaged. Vasculature: Carotid artery calcifications. Soft tissues: Unremarkable. IMPRESSION: 1. No acute fracture or subluxation. 2. Cervical spine multilevel degenerative / spondylitic changes with multilevel neural foraminal narrowing Radiologic Study #2: Radiologist's impression: PROCEDURE INFORMATION: Exam: CT Chest With Contrast; Diagnostic Exam date and time: 12/16/2024 7:26 PM Age: 74 years old Clinical indication: Abdominal pain; Generalized; Prior surgery; Surgery date: 6+ months; Surgery type: Heart surgery, stents; Abd pain, seizure TECHNIQUE: Imaging protocol: Diagnostic computed tomography of the chest with contrast. Radiation optimization: All CT scans at this facility use at least one of these dose optimization techniques: automated exposure control; mA and/or kV adjustment per patient size (includes targeted exams where dose is matched to clinical indication); or iterative reconstruction. Contrast material: OMNIPAQUE 350; Contrast volume: 75 ml; Contrast route: INTRAVENOUS (IV); COMPARISON: CR XR CHEST 1V IN DI DEPT 08/01/2024 1:31 PM FINDINGS: Lungs: The lung herrera are overall hyperinflated. The lung herrera are clear of acute infiltrate. There are scattered blebs in both upper lobes. There is no consolidation. The trachea is clear. Pleural spaces: No effusions or pneumothoraces. Heart: The heart is not enlarged. There is coronary artery calcification. Lymph nodes: No abnormal mediastinal adenopathy or hilar mass. Vasculature: The ascending thoracic aorta measures 3.6 cm. The descending thoracic aorta measures 2.4 cm. The main pulmonary artery measures 3.4 cm. Bones/joints: There are mild diffuse degenerative changes of the thoracic spine without acute bony change. Soft tissues: No abnormal soft tissue lesions of the chest wall. IMPRESSION: 1. Hyperinflation of the lungs but no current acute infiltrate effusion or pneumothorax. 2. No abnormal mediastinal adenopathy or hilar mass. 3. No acute bony change of the thoracic spine. This does not exclude bone bruising or injury to the anterior costochondral junctions. PROCEDURE INFORMATION: Exam: CT Abdomen And Pelvis With Contrast Exam date and time: 12/16/2024 7:26 PM Age: 74 years old Clinical indication: Abdominal pain; Generalized; Prior surgery; Surgery date: 6+ months; Surgery type: Heart surgery, stents; Abd pain, seizure TECHNIQUE: Imaging protocol: Computed tomography of the abdomen and pelvis with contrast. Radiation optimization: All CT scans at this facility use at least one of these dose optimization techniques: automated exposure control; mA and/or kV adjustment per patient size (includes targeted exams where dose is matched to clinical indication); or iterative reconstruction. Contrast material: OMNIPAQUE 350; Contrast volume: 75 ml; Contrast route: INTRAVENOUS (IV); COMPARISON: CT ABDOMEN PELVIS W 08/01/2024 1:35 PM FINDINGS: Lungs: Lung bases are clear. Heart: The heart is not enlarged. There is moderate coronary artery calcification. Liver: The liver shows no abnormal focal lesion. The portal vein is patent. Gallbladder and biliary ducts: No calcified gallstones or biliary dilatation. Pancreas: The pancreas shows no mass or inflammatory process. Spleen: The spleen is not enlarged. There is a 1.2 cm splenule along its inferior border. Adrenal glands: The left adrenal gland is overall enlarged which may represent hyperplasia. No nodule is evident. The right adrenal gland is unremarkable. Kidneys and ureters: The kidneys are unobstructed. There are no calculi. Stomach and bowel: No gastric outlet obstruction. No small bowel obstruction. There are diverticula of the descending and sigmoid colon but no diverticulitis. Appendix: No findings for appendicitis Intraperitoneal space: No free air or free fluid. Vasculature: There is calcification of the abdominal aorta without aneurysm or dissection. There is mild stenoses at the origin of the celiac axis. There is mild stenoses at the origin of the SMA and moderate stenoses in the mid SMA but they are patent. There are vascular stents in both common iliac arteries which are heavily calcified but they appear patent. There are vascular stents in both common femoral arteries. Lymph nodes: No abnormal para-aortic adenopathy. Urinary bladder: The bladder shows no filling defects. Reproductive: The prostate gland measures 3.1 cm AP x 4.2 cm transverse. Bones/joints: There are moderate diffuse degenerative change of the lumbar spine without acute bony change. Soft tissues: There is a subumbilical hernia containing fat only. No abnormal soft tissue masses of the abdominal wall identified. There is soft tissue subcutaneous scarring over the right groin likely secondary to the patient's prior vascular interventions. IMPRESSION: 1. No acute process in the abdomen or pelvis identified. 2. No biliary obstruction or renal obstruction. 3. Diverticulosis of the descending and sigmoid colon without diverticulitis. 4. Significant diffuse atherosclerotic change of the arterial system with vascular stents in the common iliac arteries and common femoral arteries with a still appear to be patent. 5. No free air or free fluid. 6.. Depending on the system of concern further evaluation with a CT scan with oral contrast may be helpful as well as a CTA study of the arterial system. PFSH All Active Problems (Updated 12/17/24 @ 00:14 by Bre Hernández) Elevated troponin (Acute) Seizure (Acute) PAD (peripheral artery disease) (Chronic) Hyperlipidemia (Chronic) Type 2 diabetes mellitus (Chronic) HTN (hypertension) (Chronic) [place] (acute kidney injury) (Acute) Non-healing ulcer of left foot with necrosis of bone (Acute) Non-healing ulcer of left ankle with necrosis of bone (Acute) Peripheral arterial disease with history of revascularization (Acute) Acute osteomyelitis of left talus (Acute) Osteomyelitis of left tibia (Acute) Severe sepsis (Acute) Anemia (Chronic) Acute osteomyelitis of left calcaneus (Acute) Social History Smoking risk assessment performed?: No Alcohol Intake: former Housing: house
[2024-12-16 18:41] LABS: Abs Immature Grans 0.09 10^3/uL (0.0-0.06); HCT 31.8 % (40.0-50.0); HGB 9.2 g/dL (13.5-17.5); Immature Grans % 0.6 %; MCH 22.3 pg (27.0-33.0); MCHC 28.9 % (32.0-36.0); MCV 77 fL (80-95); MPV 10.2 fL (8.0-11.0); Platelet Count 310 10^3/uL (130-400); RBC 4.12 10^6/uL (4.36-5.78); RDW 20.5 % (11.8-14.1); RDW-SD 57.4 fL; WBC 16.05 10^3/uL (4.4-10.8)
[2024-12-16 18:51] LABS: Lab Add On Test DONE
[2024-12-16 19:05] LABS: ALT 23 U/L (16-63); AST 15 U/L (15-37); Albumin 3.4 g/dL (3.4-5.0); Alkaline Phosphatase 103 U/L (46-116); Anion Gap 12.2 mmol/L (3-11); Anisocytosis 2+; BUN 58 mg/dL (7-18); Bilirubin, Total 0.3 mg/dL (0.2-1.0); CO2 28.8 mmol/L (21.0-32.0); Calcium 9.5 mg/dL (8.5-10.1); Chloride 102 mmol/L (98-107); Estimated GFR 57.65 (mL/min/1.73m2); Glucose 165 mg/dL (74-106); INR 1.1 (0.9-1.1); PTT Activated 31.0 sec (20.6-30.2); Potassium 5.0 mmol/L (3.5-5.1); Prothrombin Time 11.3 sec (9.1-11.1); Sodium 143 mmol/L (136-145); Tear Drop Cells 2+; Total Protein 7.1 g/dL (6.4-8.2); Troponin I 57 ng/L (<or=76)
[2024-12-16] MEDS: Normal Saline Flush 10 ML SYR IVP (19:25)
[2024-12-16] MEDS: Normal Saline - Diluent 50 ML VIAL IJ (19:25)
[2024-12-16] MEDS: Omnipaque 350 MG/ML 100 ML BTL IJ (19:25)
[2024-12-16] MEDS: Normal Saline 500 ML IV (20:10)
--- NOTE | 2024-12-16 20:15 | RT.EKG_ITS ---
APPROVED REPORT Exam: Resting ECG Reason for Exam: elevated troponins Patient Location: E HR:67 bpm ECG Measurements Heart Rate 67 AXIS VT [id number] P [id number] QRSd 100 QRS 45 QT 446 T -1 QTc 472 Conclusion Atrial fibrillation...? atrial activity Paired ventricular premature complexes...sequence of 2 V complexes Borderline repol abnormality, diffuse leads...ST dep, T flat/neg, ant/lat/inf no ST segment or T wave abnormalities to suggest occlusive NC ST depressions evolving, shallower compared to most recent prior from this visit
[2024-12-16 20:19] LABS: Troponin I 150 ng/L (<or=76)
--- NOTE | 2024-12-16 20:48 | NUR.NOTE ---
Pt stated he still can not provide urine, FPJ
--- NOTE | 2024-12-16 20:50 | DI.[facility]_ITS ---
PROCEDURE INFORMATION: Exam: CT Head Without Contrast Exam date and time: 12/16/2024 7:21 PM Age: 74 years old Clinical indication: Seizure TECHNIQUE: Imaging protocol: Computed tomography of the head without contrast. Radiation optimization: All CT scans at this facility use at least one of these dose optimization techniques: automated exposure control; mA and/or kV adjustment per patient size (includes targeted exams where dose is matched to clinical indication); or iterative reconstruction. COMPARISON: No relevant prior studies available. FINDINGS: Brain: No acute intracranial hemorrhage. Mild diffuse cerebral atrophy. No acute extra-axial fluid collection. Cerebral ventricles: Ventricular prominence in this patient with mild diffuse cerebral atrophy. Paranasal sinuses: No significant disease of the paranasal sinuses. Mastoid air cells: No mastoiditis. Bones: No acute fracture. Soft tissues: Unremarkable. IMPRESSION: 1. No acute fracture. 2. No acute intracranial findings. PROCEDURE INFORMATION: Exam: CT Cervical Spine Without Contrast Exam date and time: 12/16/2024 7:21 PM Age: 74 years old Clinical indication: Seizure TECHNIQUE: Imaging protocol: Computed tomography of the cervical spine without contrast. Radiation optimization: All CT scans at this facility use at least one of these dose optimization techniques: automated exposure control; mA and/or kV adjustment per patient size (includes targeted exams where dose is matched to clinical indication); or iterative reconstruction. COMPARISON: CR XR CHEST 1V IN DI DEPT 08/01/2024 1:31 PM FINDINGS: Bones: No acute fracture. No subluxation. No significant disc protrusion. No severe spinal canal stenosis. Cervical spine multilevel degenerative / spondylitic changes with multilevel neural foraminal narrowing. Lungs: Not imaged. Vasculature: Carotid artery calcifications. Soft tissues: Unremarkable. IMPRESSION: 1. No acute fracture or subluxation. 2. Cervical spine multilevel degenerative / spondylitic changes with multilevel neural foraminal narrowing. Dictated and Authenticated by: Mekhi Suero MD. Orderin Yokasta Díaz MD
[2024-12-16 20:55] LABS: Lab Add On Test DONE
--- NOTE | 2024-12-16 20:56 | DI.VRAD_ITS ---
PROCEDURE INFORMATION: Exam: CT Chest With Contrast; Diagnostic Exam date and time: 12/16/2024 7:26 PM Age: 74 years old Clinical indication: Abdominal pain; Generalized; Prior surgery; Surgery date: 6+ months; Surgery type: Heart surgery, stents; Abd pain, seizure TECHNIQUE: Imaging protocol: Diagnostic computed tomography of the chest with contrast. Radiation optimization: All CT scans at this facility use at least one of these dose optimization techniques: automated exposure control; mA and/or kV adjustment per patient size (includes targeted exams where dose is matched to clinical indication); or iterative reconstruction. Contrast material: OMNIPAQUE 350; Contrast volume: 75 ml; Contrast route: INTRAVENOUS (IV); COMPARISON: CR XR CHEST 1V IN DI DEPT 08/01/2024 1:31 PM FINDINGS: Lungs: The lung herrera are overall hyperinflated. The lung herrera are clear of acute infiltrate. There are scattered blebs in both upper lobes. There is no consolidation. The trachea is clear. Pleural spaces: No effusions or pneumothoraces. Heart: The heart is not enlarged. There is coronary artery calcification. Lymph nodes: No abnormal mediastinal adenopathy or hilar mass. Vasculature: The ascending thoracic aorta measures 3.6 cm. The descending thoracic aorta measures 2.4 cm. The main pulmonary artery measures 3.4 cm. Bones/joints: There are mild diffuse degenerative changes of the thoracic spine without acute bony change. Soft tissues: No abnormal soft tissue lesions of the chest wall. IMPRESSION: 1. Hyperinflation of the lungs but no current acute infiltrate effusion or pneumothorax. 2. No abnormal mediastinal adenopathy or hilar mass. 3. No acute bony change of the thoracic spine. This does not exclude bone bruising or injury to the anterior costochondral junctions. PROCEDURE INFORMATION: Exam: CT Abdomen And Pelvis With Contrast Exam date and time: 12/16/2024 7:26 PM Age: 74 years old Clinical indication: Abdominal pain; Generalized; Prior surgery; Surgery date: 6+ months; Surgery type: Heart surgery, stents; Abd pain, seizure TECHNIQUE: Imaging protocol: Computed tomography of the abdomen and pelvis with contrast. Radiation optimization: All CT scans at this facility use at least one of these dose optimization techniques: automated exposure control; mA and/or kV adjustment per patient size (includes targeted exams where dose is matched to clinical indication); or iterative reconstruction. Contrast material: OMNIPAQUE 350; Contrast volume: 75 ml; Contrast route: INTRAVENOUS (IV); COMPARISON: CT ABDOMEN PELVIS W 08/01/2024 1:35 PM FINDINGS: Lungs: Lung bases are clear. Heart: The heart is not enlarged. There is moderate coronary artery calcification. Liver: The liver shows no abnormal focal lesion. The portal vein is patent. Gallbladder and biliary ducts: No calcified gallstones or biliary dilatation. Pancreas: The pancreas shows no mass or inflammatory process. Spleen: The spleen is not enlarged. There is a 1.2 cm splenule along its inferior border. Adrenal glands: The left adrenal gland is overall enlarged which may represent hyperplasia. No nodule is evident. The right adrenal gland is unremarkable. Kidneys and ureters: The kidneys are unobstructed. There are no calculi. Stomach and bowel: No gastric outlet obstruction. No small bowel obstruction. There are diverticula of the descending and sigmoid colon but no diverticulitis. Appendix: No findings for appendicitis Intraperitoneal space: No free air or free fluid. Vasculature: There is calcification of the abdominal aorta without aneurysm or dissection. There is mild stenoses at the origin of the celiac axis. There is mild stenoses at the origin of the SMA and moderate stenoses in the mid SMA but they are patent. There are vascular stents in both common iliac arteries which are heavily calcified but they appear patent. There are vascular stents in both common femoral arteries. Lymph nodes: No abnormal para-aortic adenopathy. Urinary bladder: The bladder shows no filling defects. Reproductive: The prostate gland measures 3.1 cm AP x 4.2 cm transverse. Bones/joints: There are moderate diffuse degenerative change of the lumbar spine without acute bony change. Soft tissues: There is a subumbilical hernia containing fat only. No abnormal soft tissue masses of the abdominal wall identified. There is soft tissue subcutaneous scarring over the right groin likely secondary to the patient's prior vascular interventions. IMPRESSION: 1. No acute process in the abdomen or pelvis identified. 2. No biliary obstruction or renal obstruction. 3. Diverticulosis of the descending and sigmoid colon without diverticulitis. 4. Significant diffuse atherosclerotic change of the arterial system with vascular stents in the common iliac arteries and common femoral arteries with a still appear to be patent. 5. No free air or free fluid. 6.. Depending on the system of concern further evaluation with a CT scan with oral contrast may be helpful as well as a CTA study of the arterial system. Dictated and Authenticated by: Wale Bonilla MD. Orderin Yokasta Díaz MD
[2024-12-16 21:14] LABS: NT-proBNP 978 pg/mL (<300)
[2024-12-16] MEDS: Gabapentin 300 MG CAP PO (22:26)
[2024-12-16 22:57] LABS: Troponin I 559 ng/L (<or=76)
--- NOTE | 2024-12-16 23:00 | RT.EKG_ITS ---
APPROVED REPORT Exam: Resting ECG Reason for Exam: elevated trop (again) Patient Location: E HR:71 bpm ECG Measurements Heart Rate 71 AXIS UT 103 P -81 QRSd 92 QRS 48 QT 382 T -72 QTc 417 Conclusion Sinus or ectopic atrial rhythm...P axis (-45,135) Nonspecific repol abnormality, diffuse leads...ST dep, T flat/neg, ant/lat/inf no ST segment or T wave abnormalities to suggest occlusive MA ST depressions evolving, shallower compared to most recent prior from this visit
[2024-12-17] VITALS (7 sets, daily range): BP systolic 103–137; BP diastolic 50–74; PULSE 70–84; RESP 12–18; TEMP 36.4–37.2; O2SAT 92–100
--- NOTE | 2024-12-17 | DI.MRI_ITS ---
Exam(s) MR BRAIN WO EXAM: MR BRAIN WO CLINICAL HISTORY: seizure TECHNIQUE: Multiplanar multisequence MRI of the brain was performed. COMPARISON: CT CT HEAD CERVICAL SPINE WO from 12/16/2024 FINDINGS: VENTRICLES AND EXTRA AXIAL SPACES: Normal in size and morphology for the patient's age. MIDLINE SHIFT: None. CEREBRAL PARENCHYMA: No focus of restricted diffusion to suggest acute infarct. No space-occupying lesion identified. Mild atrophy consistent with the patient's age. Mild scattered foci of high signal in the white matter consistent with sequela of chronic microvascular disease. The temporal lobes appear symmetric. BRAINSTEM/CEREBELLUM: Normal. VISUALIZED PARANASAL SINUSES: Clear small mucous retention cyst near the floor of the left maxillary sinus. MASTOIDS:Clear. Vasculature: Normal flow void. PITUITARY GLAND: Unremarkable. ORBITS: Unremarkable. IMPRESSION: No acute abnormality. DATA REPOSITORY:
--- NOTE | 2024-12-17 | DI.US_ITS ---
APPROVED REPORT EXAM: Comprehensive 2D, Doppler, and color-flow Echocardiogram Patient Location: In-Patient Room/Bed: [address] Worker: Caitlin Dominique RDCS (AE) Indications: Chest pain, Elevated troponin Other Information Study Quality: Adequate Conclusion Normal left ventricular wall thickness and chamber size. Ejection fraction is 60%. Wall motion is normal Normal right ventricular size and function Mildly dilated left atrium. Normal right atrial size Aortic valve is sclerotic and trileaflet with mild regurgitation. There is no aortic stenosis Mild mitral annular calcification. Mild mitral regurgitation Normal estimated right ventricular systolic pressure 25 mmHg Wall motion Left Ventricle Left ventricle is moderately dilated. The left ventricular systolic function is normal. The left ventricular ejection fraction is within the normal range. There is normal left ventricular wall thickness. There is normal LV segmental wall motion. There is no ventricular septal defect visualized. LVEF is 60%. Right Ventricle Right ventricle is grossly normal in size. Right ventricular systolic function is grossly normal. Atria Left atrium is mildly dilated. The right atrium size is normal. The interatrial septum is intact with no evidence for an atrial septal defect. Aortic Valve The Aortic valve is sclerotic. There is no aortic valvular stenosis. mild aortic regurgitation. Mitral Valve Mild mitral annular calcification. No evidence of mitral valve stenosis. Mild mitral regurgitation. Tricuspid Valve The tricuspid valve is normal in structure. There is no tricuspid valve stenosis. Trace tricuspid regurgitation. The RVSP is 25.1 mmHg. Pulmonic Valve The pulmonary valve is normal in structure. There is no pulmonic valvular stenosis. Trace pulmonic regurgitation. Great Vessels The aortic root is normal in size. The ascending aorta is normal in size. Aortic arch is not well visualized. IVC is normal in size and collapses >50% with inspiration. Pericardium There is no pericardial effusion. 2D Dimensions IVSD d PLAX 0.90 cm M: 0.6-1.2 Ao Root d 3.10 cm M: 3.1 - 3.7 LVPW d PLAX 0.91 cm M: 0.6 - 1.2 Ao Asc Diam d 3.11 cm M: 2.6 - 3.4 LVID d PLAX 6.30 cm M: 4.2 - 5.8 LVDs 4.30 cm M: 2.5 - 4.0 LV EF Teichholz 58.7 % FS 31.73 % LV EDV (Teich) 197.8 mL LV ESV (Teich) 81.7 mL Auto EF LV EDV A4C 188.3 mL LV EDV A2C 173.7 mL LV EDV BP 180.9 mL LV ESV A4C 74.5 mL LV ESV A2C 70.2 mL LV ESV BP 72.1 mL LVEF(%) A4C 60.4 % LVEF(%) A2C 59.6 % LVEF(%) BP 60.2 % LV SV A4C 113.8 ml LV SV A2C 103.5 ml LV SV BP 108.8 ml LV CO A4C 9.5 L/min LV CO A2C 8.7 L/min LV CO BP 9.1 L/min HR A4C 83.34 BPM HR A2C 84.51 BPM LV EDV Index (BP) LA Volume LA Length A4C 5.9 cm LA Length A2C 5.8 cm LA Area A4C s 22.53 cm2 LA Area A2C s 24.49 cm2 LA Vol A4C A-L 73.29 mL LA Vol A2C A-L 87.18 mL LA Vol Biplane A-L 80.2 mL LA Vol/BSA A4C A-L LA Vol/BSA A2C A-L LA Vol/BSA BP A-L 38.9 mL/m2 LA Vol A4C MOD 69.4 mL LA Vol A2C MOD 81.1 mL LA Vol BP MOD 75.2 mL RA Volume RA Area A4C 14.4 cm2 RA ESV A4C (A-L) 36.4mL RA Vol/BSA A4C A-L RA Length A4C 4.8 cm RA ESV A4C (MOD) 34.2mL LV Diastology MV E' medial 0.058 (>0.07 m/s) MV E Vmax 0.98 (0.4-1.3 m/s) MV E/E' MED 16.93 (<14) MV A Vmax 0.95 (0.4-1.3 m/s) MV E' lateral 0.154 (>0.1 m/s) E/A Ratio 1.0 MV E/E' LAT 6.33 (<14) MV E' Average 0.106 m/s MV E/E'(average) 9.22 Aortic Valve AoV Vmax 1.57 m/s LVOT Vmax 1.22 m/s AoV Peak Grad 39.6 mmHg LVOT Peak Grad 5.9 mmHg AoV Area (Vmax) 2.44 cm2 LVOT VTI 0.282 m AoV VTI 0.346 m LVOT Mean Grad 3.5 mmHg AoV Mean Marcelino. 1.07 m/s LVOT SV 88.56 mL AoV Mean Grad 5.3 mmHg LVOT Diam s 2.00 cm AoV Area (VTI) 2.56 cm2 AV Regurg Peak Gr. 9.84 mmHg Velocity Ratio 0.78 AR Decel Arroyo 2.3m/sec2 AR DT 1794 msec AR PHT 520 msec AR Vmax 4.17 m/s Mitral Valve MV DT 198 (160-240 msec) MV Vmax TIPS 0.91 m/s MV Mean Grad 1.6 (<2mmHg) MV VTI 0.315 m Pulmonary Valve PV Vmax 1.05 (0.5-1.5 m/s) RVOT Vmax 0.99 m/s PV Peak Grad 4.4 mmHg RVOT Peak Gr. 3.9 mmHg PV Mean Marcelino 0.77 m/s RVOT VTI 0.221 m PV Mean Grad 2.6 mmHg RVOT Mean Gr. 2.3 mmHg Tricuspid Valve RA Pressure 3.00 mmHg TR Vmax 2.35 m/s TV S' 0.19 m/s TR Peak Grad 22.1 mmHg RVSP (TR) 25.1 mmHg
--- NOTE | 2024-12-17 00:16 | W.PM.HP.N ---
Date of service: 12/17/24 Time of Service: 00:15 Assessment and Plan Assessment and plan (1) Seizure: Status: Acute Assessment and plan: Witnessed ~1 minute tonic clonic seizure with urine incontinence and post-ictal state Teleneurology consulted, concern for focal seizure with reported head jerk to the right Will order MRI, EEG. Teleneuro report on hand, recommendations for next steps made. Admit on telemetry, seizure precautions, hold benzos / antiseizure meds for workup (2) Elevated troponin: Status: Acute Assessment and plan: One of 3 EKGs with arrhythmia. Troponins trending up. [facility] [place], recommending echo and cardiac monitoring Echo ordered (3) Peripheral arterial disease with history of revascularization: Status: Acute Assessment and plan: Continue apixaban, clopidogrel (4) HTN (hypertension): Status: Chronic Assessment and plan: Possible HF, previous echo not available Continue home amlodipine, bumetanide, lisinopril, metoprolol (5) Hyperlipidemia: Status: Chronic Assessment and plan: Continue statin (6) Type 2 diabetes mellitus: Status: Chronic Assessment and plan: Hold home glipizide Sensitive SSI ACHS (7) Anemia: Status: Chronic Assessment and plan: Hemoglobin improved over July visit for blood loss anemia Will check iron panel History of Present Illness History of Present Illness Chief Complaint: seizure Narrative: Alonzo Ortiz is a 74 year old man presenting December 16 after a seizure-like episode. He had a hotdog, which gave him GERD, and while on the toilet he began to retch, after which his head jerked to the right, and then had about one minute of tonic-clonic movements and was unresponsive, foaming at the mouth, with urine incontinence. He was then poorly responsive for 5-10 minutes. This episode was witnessed by his who is a retired nurse. He had no chest pain, no shortness of breath, no headache, and was not diaphoretic. He has never had a similar episode before. On interview he reports his bed is uncomfortable, otherwise he has no complaints. Patient and his receive the majority of their medical care in [facility]. In the ED he was initially hypoxemic with SpO2 as low as 80%, bradycardic as low as 50, with some BP elevations to 150's / 120's. Initial EKG showed ectopic atrial rhythm without evidence of occlusive [place]; second EKG showed atrial fibrillation; third EKG was same as the first. Initial troponin 57, rising to 559. Leukocytosis 16.05. Mild anemia with hemoglobin 9.2, microcytic. BNP 978. Lactic acid 3.9, resolved on 2nd draw. Glucose 165. CT head and cervical spine unremarkable per remote read. CT chest abdomen pelvis without acute pathology per remote read. He was given NS 500 bolus. 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, CAD with stent, HTN, HLD, DM on orals, tobacco dependence, recent hospitalization for anemia with upper GI distress (endoscopy deferred), lower extremity DVT on apixaban PFSH All Active Problems (Updated 12/17/24 @ 00:14 by Bre Hernández) Elevated troponin (Acute) Seizure (Acute) PAD (peripheral artery disease) (Chronic) Hyperlipidemia (Chronic) Type 2 diabetes mellitus (Chronic) HTN (hypertension) (Chronic) [place] (acute kidney injury) (Acute) Non-healing ulcer of left foot with necrosis of bone (Acute) Non-healing ulcer of left ankle with necrosis of bone (Acute) Peripheral arterial disease with history of revascularization (Acute) Acute osteomyelitis of left talus (Acute) Osteomyelitis of left tibia (Acute) Severe sepsis (Acute) Anemia (Chronic) Acute osteomyelitis of left calcaneus (Acute) Social History Smoking risk assessment performed?: No Alcohol Intake: former Housing: house Meds Allergies and Home Medications Allergies Allergy/AdvReac Type Severity Reaction Status Date / Time ritonavir (From Norvir) Allergy Intermediate Other (See Verified 12/17/24 00:44 Comment) codeine Allergy rash Verified 12/17/24 00:44 furosemide (From Lasix) Allergy rash Verified 12/17/24 00:44 hydrochlorothiazide Allergy rash Verified 12/17/24 00:44 turkey AdvReac Diarrhea Verified 12/17/24 00:44 Home Medications ?Medication ?Instructions ?Recorded ?Confirmed ?Type amlodipine 2.5 mg tablet 2.5 mg PO DAILY 08/01/24 12/17/24 History atorvastatin 80 mg tablet 80 mg PO DAILY 08/01/24 12/17/24 History bumetanide 1 mg tablet 1 mg PO DAILY 08/01/24 12/17/24 History clopidogrel 75 mg tablet 75 mg PO DAILY 08/01/24 12/17/24 History gabapentin 100 mg capsule 100 mg PO TID 08/01/24 12/17/24 History lisinopril 20 mg tablet 20 mg PO DAILY 08/01/24 12/17/24 History multivitamin 1 tab PO DAILY 08/01/24 12/17/24 History omega 2-ssi-mju-fish oil 1,200 mg 1 cap PO DAILY 08/01/24 12/17/24 History (144 mg-216 mg) capsule (Fish Oil) gabapentin 300 mg capsule 300 mg PO DAILY PRN 08/02/24 12/17/24 History glipizide 5 mg tablet, extended 5 mg PO DAILY 08/02/24 12/17/24 History release 24 hr metoprolol succinate 25 mg 25 mg PO DAILY 08/02/24 12/17/24 History tablet,extended release 24 hr apixaban 5 mg tablet (Eliquis) 5 mg PO BID 12/03/24 12/17/24 History famotidine 40 mg tablet 40 mg PO DAILY 12/17/24 12/17/24 History tamsulosin 0.4 mg capsule 0.4 mg PO DAILY 12/17/24 12/17/24 History Exam Narrative Exam Narrative: General: This is a fatigued, chronically ill-appearing man in no acute distress HEENT: Normocephalic, atraumatic CV: RRR Resp: CTAB Abd: soft, NTND MSK: voluntary motion x4 Neuro: awake, alert, no focal deficits Results Labs 12/16/24 18:36 12/16/24 18:36 Labs: Laboratory Results - last 24 hr 12/16/24 12/16/24 12/16/24 18:36 18:38 19:48 WBC 16.05 H RBC 4.12 L Hgb 9.2 L Hct 31.8 L MCV 77 L MCH 22.3 L MCHC 28.9 L RDW 20.5 H Plt Count 310 MPV 10.2 Immature Gran % 0.6 Neutrophils % 86.6 Lymphocytes % 5.9 Monocytes % 6.4 Eosinophils % 0.3 Basophils % 0.2 Nucleated RBC % 0.0 Absolute Neutrophils 13.90 H Absolute Lymphocytes 0.95 L Absolute Monocytes 1.03 H Absolute Eosinophils 0.05 Absolute Basophils 0.03 RBC Morphology See Below Anisocytosis 2+ Tear Drop Cells 2+ PT 11.3 H INR 1.1 APTT 31.0 H VBG Lactate 3.9 H* Sodium 143 Potassium 5.0 Chloride 102 Carbon Dioxide 28.8 Anion Gap 12.2 H BUN 58 H Creatinine 1.3 Est GFR (CKD-EPI 2020) 57.65 Glucose 165 H Calcium 9.5 Total Bilirubin 0.3 AST 15 ALT 23 Alkaline Phosphatase 103 Troponin I 57 150 H* NT-Pro-B Natriuret Pep 978 H Total Protein 7.1 Albumin 3.4 Ethyl Alcohol < 3.0 Add-On Test Request DONE 12/16/24 12/16/24 12/16/24 20:39 20:58 22:30 WBC RBC Hgb Hct MCV MCH MCHC RDW Plt Count MPV Immature Gran % Neutrophils % Lymphocytes % Monocytes % Eosinophils % Basophils % Nucleated RBC % Absolute Neutrophils Absolute Lymphocytes Absolute Monocytes Absolute Eosinophils Absolute Basophils RBC Morphology Anisocytosis Tear Drop Cells PT INR APTT VBG Lactate 2.0 Sodium Potassium Chloride Carbon Dioxide Anion Gap BUN Creatinine Est GFR (CKD-EPI 2020) Glucose Calcium Total Bilirubin AST ALT Alkaline Phosphatase Troponin I 559 H* NT-Pro-B Natriuret Pep Total Protein Albumin Ethyl Alcohol Add-On Test Request DONE Last Vital Signs Temp 36.4 C L 12/16/24 21:58 Pulse 72 12/16/24 21:02 Resp 25 H 12/16/24 21:02 BP 133/52 L 12/16/24 21:02 Pulse Ox 100 12/16/24 21:02 Time Spent Time spent with Patient: 55-74 minutes Time was spent: preparing to see the patient(eg.review tests), obtaining and/or reviewing separately otained hiistory, ordering medications,tests, procedures, referring, communicating with other health direct care provider, indepentently interpreting results, counseling the patient and care coordination
[2024-12-17 00:40] LABS: Glucose Negative (Negative)
--- NOTE | 2024-12-17 00:53 | W.PC.ACHO ---
Registration Status: REG ER Primary Language: Preferred Language: ED Information & Data Chief Complaint Seizure 12/16/24 21:04 Chief Complaint Seizure 12/16/24 18:20 Triage Note BIBA x1 seizure like 12/16/24 18:05 activity witness by at home with a 5-10 min postictal period. Burning sensation in epigastric frequent PVCs in to a bigeminy rhythm per Medic, Blood sugar wnl prior to arrival Most Recent Vital Signs Temperature 36.4 C L 12/16/24 21:58 Pulse 69 12/16/24 22:50 Pulse 73 12/16/24 23:05 Respiratory Rate 11 L 12/16/24 23:05 Respiratory Effort Normal, Non-Labored 12/16/24 21:01 Respiratory Depth Normal 12/16/24 21:01 Respiratory Pattern Normal 12/16/24 21:01 Blood Pressure 142/43 H 12/16/24 22:31 Blood Pressure Mean 79 12/16/24 22:31 Pulse Oximetry 99 12/16/24 22:50 Oxygen Delivery Method Room Air 12/16/24 18:05 Oxygen Flow Rate 0 12/16/24 18:05 Allergies ritonavir (From Norvir) Allergy (Intermediate, Verified 12/17/24 00:44) Other (See Comment) Paresthesia codeine Allergy (Verified 12/17/24 00:44) rash furosemide (From Lasix) Allergy (Verified 12/17/24 00:44) rash hydrochlorothiazide Allergy (Verified 12/17/24 00:44) rash turkey Adverse Reaction (Verified 12/17/24 00:44) Diarrhea Precautions Isolation Standard precaution 12/16/24 21:04 Active Medications Generic Name Dose Route Start Last Admin Trade Name Freq PRN Reason Stop Dose Admin Iohexol 100 ml 12/16/24 18:45 12/16/24 19:25 Omnipaque 350 Mg/Ml 100 Ml Btl IJ 01/15/25 23:59 75 ml DIRECTED MARLYN Administration Sodium Chloride 50 ml 12/16/24 18:45 12/16/24 19:25 Normal Saline - Diluent 50 Ml Vial IJ 50 ml DIRECTED MARLYN Administration Sodium Chloride 0 ml 12/16/24 18:42 12/16/24 19:25 Normal Saline Flush 10 Ml Syr IVP 10 ml PRN PRN Administration IV IV Catheter Type [Right Saline Lock Antecubital] IV Catheter Gauge [Right 18 Antecubital] Diet Orders Category Date Time Status Regular/Normal [DIET] Nutrition 12/17/24 Breakfast Active Diagnostics 12/17/24 12/17/24 12/16/24 Range/Units 05:35 00:28 22:30 WBC Pending (4.4-10.8) 10^3/uL RBC Pending (4.36-5.78) 10^6/uL Hgb Pending (13.5-17.5) g/dL Hct Pending (40.0-50.0) % MCV Pending (80-95) fL MCH Pending (27.0-33.0) pg MCHC Pending (32.0-36.0) % RDW Pending (11.8-14.1) % Plt Count Pending (130-400) 10^3/uL MPV Pending (8.0-11.0) fL Immature Gran % Pending % Neutrophils % Pending % Lymphocytes % Pending % Monocytes % Pending % Eosinophils % Pending % Basophils % Pending % Nucleated RBC % (0.0-0.3) % Absolute Neutrophils Pending (1.2-6.7) 10^3/uL Absolute Lymphocytes Pending (1.2-3.4) 10^3/uL Absolute Monocytes Pending (0.1-0.8) 10^3/uL Absolute Eosinophils Pending (0.0-0.7) 10^3/uL Absolute Basophils Pending (0.0-0.2) 10^3/uL RBC Morphology Anisocytosis Tear Drop Cells PT (9.1-11.1) sec INR (0.9-1.1) APTT (20.6-30.2) sec VBG Lactate (<or=2.0) mmol/L Sodium Pending (136-145) mmol/L Potassium Pending (3.5-5.1) mmol/L Chloride Pending (98-107) mmol/L Carbon Dioxide Pending (21.0-32.0) mmol/L Anion Gap Pending (3-11) mmol/L BUN Pending (7-18) mg/dL Creatinine Pending (0.70-1.30) mg/dL Est GFR (CKD-EPI 2020) Pending (mL/min/1.73m2) Glucose Pending (74-106) mg/dL Calcium Pending (8.5-10.1) mg/dL Magnesium Pending Total Bilirubin Pending (0.2-1.0) mg/dL AST Pending (15-37) U/L ALT Pending (16-63) U/L Alkaline Phosphatase Pending (46-116) U/L Troponin I 559 H* (<or=76) ng/L NT-Pro-B Natriuret Pep (<300) pg/mL Total Protein Pending (6.4-8.2) g/dL Albumin Pending (3.4-5.0) g/dL Urine Color Yellow (Yellow) Urine Clarity Clear (Clear) Urine pH 7.5 (5-8) Ur Specific [place] 1.020 (1.005-1.025) Urine Protein Negative (Neg-Trace) mg/dL Urine Ketones Negative (Negative) mg/dL Urine Blood Negative (Negative) Urine Nitrite Negative (Negative) Urine Bilirubin Negative (Negative) Urine Urobilinogen 0.2 (Up to 0.2) mg/dL Ur Leukocyte Esterase Negative (Negative) Urine Glucose Negative (Negative) mg/dL Urine Opiates Screen Pending Ur Barbiturates Screen Pending Ur Tricyclics Screen Pending Ur Amphetamines Screen Pending U Benzodiazepines Scrn Pending Urine Cocaine Screen Pending Ur THC Screen Pending Ethyl Alcohol (<10) mg/dL Add-On Test Request 12/16/24 12/16/24 12/16/24 Range/Units 20:58 20:39 19:48 WBC (4.4-10.8) 10^3/uL RBC (4.36-5.78) 10^6/uL Hgb (13.5-17.5) g/dL Hct (40.0-50.0) % MCV (80-95) fL MCH (27.0-33.0) pg MCHC (32.0-36.0) % RDW (11.8-14.1) % Plt Count (130-400) 10^3/uL MPV (8.0-11.0) fL Immature Gran % % Neutrophils % % Lymphocytes % % Monocytes % % Eosinophils % % Basophils % % Nucleated RBC % (0.0-0.3) % Absolute Neutrophils (1.2-6.7) 10^3/uL Absolute Lymphocytes (1.2-3.4) 10^3/uL Absolute Monocytes (0.1-0.8) 10^3/uL Absolute Eosinophils (0.0-0.7) 10^3/uL Absolute Basophils (0.0-0.2) 10^3/uL RBC Morphology Anisocytosis Tear Drop Cells PT (9.1-11.1) sec INR (0.9-1.1) APTT (20.6-30.2) sec VBG Lactate 2.0 (<or=2.0) mmol/L Sodium (136-145) mmol/L Potassium (3.5-5.1) mmol/L Chloride (98-107) mmol/L Carbon Dioxide (21.0-32.0) mmol/L Anion Gap (3-11) mmol/L BUN (7-18) mg/dL Creatinine (0.70-1.30) mg/dL Est GFR (CKD-EPI 2020) (mL/min/1.73m2) Glucose (74-106) mg/dL Calcium (8.5-10.1) mg/dL Magnesium Total Bilirubin (0.2-1.0) mg/dL AST (15-37) U/L ALT (16-63) U/L Alkaline Phosphatase (46-116) U/L Troponin I 150 H* (<or=76) ng/L NT-Pro-B Natriuret Pep (<300) pg/mL Total Protein (6.4-8.2) g/dL Albumin (3.4-5.0) g/dL Urine Color (Yellow) Urine Clarity (Clear) Urine pH (5-8) Ur Specific [place] (1.005-1.025) Urine Protein (Neg-Trace) mg/dL Urine Ketones (Negative) mg/dL Urine Blood (Negative) Urine Nitrite (Negative) Urine Bilirubin (Negative) Urine Urobilinogen (Up to 0.2) mg/dL Ur Leukocyte Esterase (Negative) Urine Glucose (Negative) mg/dL Urine Opiates Screen Ur Barbiturates Screen Ur Tricyclics Screen Ur Amphetamines Screen U Benzodiazepines Scrn Urine Cocaine Screen Ur THC Screen Ethyl Alcohol (<10) mg/dL Add-On Test Request DONE 12/16/24 12/16/24 Range/Units 18:38 18:36 WBC 16.05 H (4.4-10.8) 10^3/uL RBC 4.12 L (4.36-5.78) 10^6/uL Hgb 9.2 L (13.5-17.5) g/dL Hct 31.8 L (40.0-50.0) % MCV 77 L (80-95) fL MCH 22.3 L (27.0-33.0) pg MCHC 28.9 L (32.0-36.0) % RDW 20.5 H (11.8-14.1) % Plt Count 310 (130-400) 10^3/uL MPV 10.2 (8.0-11.0) fL Immature Gran % 0.6 % Neutrophils % 86.6 % Lymphocytes % 5.9 % Monocytes % 6.4 % Eosinophils % 0.3 % Basophils % 0.2 % Nucleated RBC % 0.0 (0.0-0.3) % Absolute Neutrophils 13.90 H (1.2-6.7) 10^3/uL Absolute Lymphocytes 0.95 L (1.2-3.4) 10^3/uL Absolute Monocytes 1.03 H (0.1-0.8) 10^3/uL Absolute Eosinophils 0.05 (0.0-0.7) 10^3/uL Absolute Basophils 0.03 (0.0-0.2) 10^3/uL RBC Morphology See Below Anisocytosis 2+ Tear Drop Cells 2+ PT 11.3 H (9.1-11.1) sec INR 1.1 (0.9-1.1) APTT 31.0 H (20.6-30.2) sec VBG Lactate 3.9 H* (<or=2.0) mmol/L Sodium 143 (136-145) mmol/L Potassium 5.0 (3.5-5.1) mmol/L Chloride 102 (98-107) mmol/L Carbon Dioxide 28.8 (21.0-32.0) mmol/L Anion Gap 12.2 H (3-11) mmol/L BUN 58 H (7-18) mg/dL Creatinine 1.3 (0.70-1.30) mg/dL Est GFR (CKD-EPI 2020) 57.65 (mL/min/1.73m2) Glucose 165 H (74-106) mg/dL Calcium 9.5 (8.5-10.1) mg/dL Magnesium Total Bilirubin 0.3 (0.2-1.0) mg/dL AST 15 (15-37) U/L ALT 23 (16-63) U/L Alkaline Phosphatase 103 (46-116) U/L Troponin I 57 (<or=76) ng/L NT-Pro-B Natriuret Pep 978 H (<300) pg/mL Total Protein 7.1 (6.4-8.2) g/dL Albumin 3.4 (3.4-5.0) g/dL Urine Color (Yellow) Urine Clarity (Clear) Urine pH (5-8) Ur Specific [place] (1.005-1.025) Urine Protein (Neg-Trace) mg/dL Urine Ketones (Negative) mg/dL Urine Blood (Negative) Urine Nitrite (Negative) Urine Bilirubin (Negative) Urine Urobilinogen (Up to 0.2) mg/dL Ur Leukocyte Esterase (Negative) Urine Glucose (Negative) mg/dL Urine Opiates Screen Ur Barbiturates Screen Ur Tricyclics Screen Ur Amphetamines Screen U Benzodiazepines Scrn Urine Cocaine Screen Ur THC Screen Ethyl Alcohol < 3.0 (<10) mg/dL Add-On Test Request DONE Intake and Output - 24 Hour Total 12/16/24 17:57 thru 12/17/24 00:43 Intake Total 510 Output Total 500 Balance 10 Weight 95.663 kg Intake: IV 510 Output: Urine 500 Other: Urine Color Pale Yellow Urine Appearance Clear Urinary Catheter Urinary Catheter Date of 12/17/24 Insertion [Straight] Time of insertion [Straight] 00:20 Falls Risk Assessment History of Falls No History 12/16/24 21:04 Contributing Factors Impairments 12/16/24 21:04 Ambulatory Aids Uses ambulatory device + 12/16/24 21:04 Tubes/Lines None 12/16/24 21:04 Gait Evaluation W/any additional score 12/16/24 21:04 Cognition No cognitive impairment 12/16/24 21:04 Fall Total Score 53 12/16/24 21:04 Level of Risk High Risk 12/16/24 21:04 Problems (Last Updated 08/01/24 @ 19:16 by Manoj Thomas) Elevated troponin (Acute) Seizure (Acute) Notes 12/16/24 20:48 Nursing Notes by Adriano Owens Pt stated he still can not provide urine, FPJ Initialized on 12/16/24 20:48 - END OF NOTE v v v v v v v v v Sending and/or Receiving Nurses: Please use comment section below to note any information pertinent to the patient hand-off not included above. Information / Comments: no further Report received from:dev
[2024-12-17 00:58] LABS: Cannabinoids THC Negative (Negative); METHADONE URINE SCREEN Negative (Negative)
--- NOTE | 2024-12-17 02:02 | RESPIRATORY ---
Pt says he uses a home cpap and believes it ramps to +10. Does not know his home company
[2024-12-17 06:55] LABS: Abs Immature Grans 0.03 10^3/uL (0.0-0.06); HCT 27.6 % (40.0-50.0); HGB 8.1 g/dL (13.5-17.5); Immature Grans % 0.3 %; MCH 22.8 pg (27.0-33.0); MCHC 29.3 % (32.0-36.0); MCV 78 fL (80-95); MPV 11.0 fL (8.0-11.0); Platelet Count 276 10^3/uL (130-400); RBC 3.55 10^6/uL (4.36-5.78); RDW 20.7 % (11.8-14.1); RDW-SD 58.7 fL; WBC 9.49 10^3/uL (4.4-10.8)
[2024-12-17 07:31] LABS: Iron 20 ug/dL (65-175); Total Iron Binding Capacity 316 ug/dL (250-450); Transferrin Sat 6 % (20-55)
[2024-12-17 07:44] LABS: Ferritin 14 ng/mL (26-388)
[2024-12-17 07:47] LABS: Anisocytosis 1+; Hypochromasia 2+; Microcytosis 2+; Ovalocytes 2+
[2024-12-17 07:51] LABS: ALT 17 U/L (16-63); AST 21 U/L (15-37); Albumin 2.7 g/dL (3.4-5.0); Alkaline Phosphatase 86 U/L (46-116); Anion Gap 10.4 mmol/L (3-11); BUN 45 mg/dL (7-18); Bilirubin, Total 0.3 mg/dL (0.2-1.0); CO2 24.6 mmol/L (21.0-32.0); Calcium 8.7 mg/dL (8.5-10.1); Chloride 106 mmol/L (98-107); Estimated GFR 70.44 (mL/min/1.73m2); Glucose 82 mg/dL (74-106); Magnesium 2.4 mg/dL (1.8-2.4); Potassium 4.4 mmol/L (3.5-5.1); Sodium 141 mmol/L (136-145); Total Protein 6.0 g/dL (6.4-8.2)
[2024-12-17 07:58] LABS: Creatine Kinase 64 U/L (39-308)
[2024-12-17 08:02] LABS: Troponin I 1246 ng/L (<or=76)
[2024-12-17] MEDS: Clopidogrel 75 MG TAB PO (09:35)
[2024-12-17] MEDS: amLODIPine 2.5 MG TAB PO (09:35)
[2024-12-17] MEDS: Tamsulosin 0.4 MG CAPCR PO (09:35)
[2024-12-17] MEDS: Famotidine 20 MG TAB 40 MG PO (09:36)
[2024-12-17] MEDS: Apixaban 5 MG TAB PO (09:36)
[2024-12-17] MEDS: Lisinopril 20 MG TAB PO (09:36)
[2024-12-17] MEDS: Normal Saline Flush 10 ML SYR IVP (09:38)
--- NOTE | 2024-12-17 09:45 | RT.EKG_ITS ---
APPROVED REPORT Exam: Resting ECG Reason for Exam: increasing troponins Patient Location: I HR:86 bpm ECG Measurements Heart Rate 86 AXIS NE 91 P -87 QRSd 102 QRS 48 QT 364 T 260 QTc 436 Conclusion Sinus or ectopic atrial rhythm...P axis (-45,135) Ventricular premature complex...V complex w/ short R-R interval Short NE interval...NE <110mS Nonspecific repol abnormality, diffuse leads...ST dep, T flat/neg, ant/lat/inf
--- NOTE | 2024-12-17 09:49 | INITIAL_ITS ---
Date of service: 12/17/24 Time of Service: 09:50 Care Management Initial Assmt Initial Assessment Reason for Hospitalization: seizure Functional Status/Living Situation Patient Presentation: Winston was admitted early last night through the ED after he had a witnessed 1 minute seizure. He was incontinent, foaming at the mouth and also was post- ictal. Tele-neuro was consulted. MRI and EEG ordered for today. He was admitted on telemetry, seizure precautions. He was noted to have elevated troponins and 3 EKGS with arrythmia - [facility] cardiology was consulted - echo and telemetry recommended. All testing was completed today. Troponins have been elevated, but the last level had decreased. Winston and his receive most of their medical care in [place], [place], but do have a local PCP. Winston was up in the bedside chair when CM met with him. He was very pleasant, and remembered CM from his last visit. Winston stated that his event last night scared both him and his , Dawn. Winston is also not a big fan of hospitals, so is hoping to leave this afternoon once his testing is completed. Winston and Dawn are planning to leave [place] to go back to [place] on 12/23. They are planning to drive. Winston has an appointment with his pediatric licensed practical nurse in [place] coming up that he would like to attend. Town of Residence: [place], [place] and also winter in [facility] Resides with: Spouse (Amanda) Employment Status: Retired (worked as an electrical and senior mechanical designer.) Instrumental Activities of Daily Living (ADLs): Independent Medications Medication Management: No Issues/Barriers identified Physical Functioning/Mobility Assistive Device: uses 2 canes, sometimes a walker Advance Directives Advance Directives: Do you have an Advance Directive: N 13, 11:53 AD On File at [facility]: N 0413, 09:15 Date Asked 12/17/24 Today, 04:19 AD Date Reviewed COLST On File at [facility] COLST Date Scanned Code Status Resuscitation Status Full Code Insurance Coverage/Financial Issues Insurance: Medicare Part A & B /[facility]? Care Team Visit Care Team Role Provider Type Rylan Griffin MD [facility] STAFF PHYSICIAN Wanda Cespedes MD Primary Care Provider [facility] STAFF PHYSICIAN Maryjane Stein, SCOTT, CDCES Other Providers OTHER SPORTS COACH OR INSTRUCTOR Bobby Norman Other Providers OTHER Jordan Sukhjinder, RDN Other Providers OTHER SPORTS COACH OR INSTRUCTOR Bre Hernández Emergency Provider NURSE PRACTITIONER Edward Richards MD Admit Provider MD [facility] STAFF PHYSICIAN Attending Provider Discharge Potential Discharge Needs: Imaging/labs (MRI, EEG and echocardiogram) and PCP F/U Appt Anticipated Barriers to Discharge: None Identified Patient/Family Education Needs: Review discharge instructions, discuss Ask Me Three Transportation: Private vehicle Plan: Winston will discharge home once he is medically cleared. He will f/u with his providers in [facility] and continue per his plan of care. CM will continue to follow. Social Determinants of Health Screening Will the Patient Participate in the Screening?: Unable to obtain Problems where you live: no known problems In the past 12 months, have you had to go without electric, gas, oil or water in your home?: no Has lack of transportation kept you from medical appointments or from doing things needed for daily living?: no Has anyone in your life made you feel unsafe or unsupported?: no How hard is it for you to pay for the very basics like food, housing, medical care, and heating? Would you say it is:: Not hard at all Do you want help finding or keeping work or a job?: I do not need or want help If for any reason you need help with day-to-day activities such as bathing, preparing meals, shopping, managing finances, etc., do you get the help you need?: I need a lot more help How often do you feel lonely or isolated from those around you?: Never Do you speak a language other than Yakut at home?: No Does the patient want assistance with any of the above?: No Health Related Social Needs Health related social needs: problems with daily activities (Z73.9) Health related social needs details: no further PFSH All Active Problems (Updated 12/17/24 @ 00:14 by rBe Hernández) Elevated troponin (Acute) Seizure (Acute) PAD (peripheral artery disease) (Chronic) Hyperlipidemia (Chronic) Type 2 diabetes mellitus (Chronic) HTN (hypertension) (Chronic) D[place] (acute kidney injury) (Acute) Non-healing ulcer of left foot with necrosis of bone (Acute) Non-healing ulcer of left ankle with necrosis of bone (Acute) Peripheral arterial disease with history of revascularization (Acute) Acute osteomyelitis of left talus (Acute) Osteomyelitis of left tibia (Acute) Severe sepsis (Acute) Anemia (Chronic) Acute osteomyelitis of left calcaneus (Acute) Social History Smoking risk assessment performed?: No Alcohol Intake: former Housing: house
[2024-12-17 12:30] LABS: Troponin I 880 ng/L (<or=76)
--- NOTE | 2024-12-17 14:28 | IN_ITS ---
PT Notes Visit Reasons: Seizure Physical Therapy Inpatient Initial Evaluation Date: 12/17/2024 Referring Doctor: Edward Richards MD PT Orders: PT CONSULT: D/C Non-PT dependent Precautions: Fall. Standard. Activity as tolerated. Patient Profile/Admitting Diagnosis: Alonzo is a 74-year-old male patient who presented to the ED on 12/16/2024 for seizure-like episodes with retching, mouth foaming, and urinary incontinence, and decreased responsiveness. Patient was admitted for monitoring and management of said symptoms, elvated troponin, PAD, HTN, HLD, type II DM, and anemia. MRI did not show acute abnormality. Echo showed F of 60% with mild AV sclerosis and regurgitation. PMHX: All Active Problems (Updated 12/17/24 @ 00:14 by Bre Hernández) Elevated troponin (Acute) Seizure (Acute) PAD (peripheral artery disease) (Chronic) Hyperlipidemia (Chronic) Type 2 diabetes mellitus (Chronic) HTN (hypertension) (Chronic) [place] (acute kidney injury) (Acute) Non-healing ulcer of left foot with necrosis of bone (Acute) Non-healing ulcer of left ankle with necrosis of bone (Acute) Peripheral arterial disease with history of revascularization (Acute) Acute osteomyelitis of left talus (Acute) Osteomyelitis of left tibia (Acute) Severe sepsis (Acute) Anemia (Chronic) Acute osteomyelitis of left calcaneus (Acute) Social History/Home Situation: [facility] in [place] for 6 months, in [place] the rest of the year. has been very supportive. Supervision level for all mobility ADL performance using FWW. Mild Equipment Owned/DME: Wrist brace for support, heel off-loading boot on L, FWW, SPC Subjective: Agreeable to showing PT that he is at baseline mobility level wi.th supervising. Verbalized feeling much better.today. Hopeful about going home today. Objective: General Observation: Patient with in the bathroom finishing up with toileting. Mental Status: Alert and oriented as to person, place, time, and purpose. Able to pay attention, focus, and respond appropriately. Pain: None reported Vital Signs: Closely monitored by nursing staff ROM: Right Upper Extremity: Shoulder Flexion allowed only about 100 degrees. Shoulder abduction allowed only about 100 degrees. Elbow flexion WFL. Wrist flexion WFL. Functional opening and closing of hand WFL. Left Upper Extremity: Shoulder Flexion allowed only about 100 degrees. Shoulder abduction allowed only about 100 degrees. Elbow flexion WFL. Wrist flexion NT, patient on wrist splint for pre-existing wrist injury being followed by orthopedic MD.. Functional opening and closing of hand NT, patient on wrist splint for pre-existing wrist injury being followed by orthopedic MD. Right Lower Extremity: Hip flexion WFL. Hip abduction WFL. Knee flexion WFL. Ankle dorsiflexion Wto neutral only. Ankle plantarflexion about 10 degrees. Left Lower Extremity: Hip flexion WFL. Hip abduction WFL. Knee flexion WFL. Ankle dorsiflexion WFL.. Ankle plantarflexion WFL. Strength: Right Upper Extremity: Shoulder flexors 3-/5. Shoulder abductors 3-/5. Elbow flexors 4-/5. Elbow extensors 4-/5. Wood Heel Flap Trimmer strong. Left Upper Extremity: Shoulder flexors 3-/5. Shoulder abductors 3-/5. Elbow flexors 4-/5. Elbow extensors 4-/5. Wood Heel Flap Trimmer strong NT. Right Lower Extremity: Hip flexors 4-/5. Hip abductors 4-/5. Knee flexors 4-/5. Knee extensors 4-/5. Ankle dorsiflexors 3-/5. Ankle plantarflexors, 4-/5. Left Lower Extremity: Hip flexors 4-/5. Hip abductors 4-/5. Knee flexors 4-/5. Knee extensors 4-/5. Ankle dorsiflexors NT.. Ankle plantarflexors, NT. Bed Mobility/Transfers: Sit to stand supervision with FWW Stand to sit supervision with FWW Bed to toilet seat supervision with FWW Toilet seat to edge of bed supervision with FWW Bed to reclining chair bed supervision with FWW Gait: 300 feet with FWW with asymmetric step height and length requiring supervision from as per prior level of function. No SOB. No LOB. Balance: Static Sitting: Normal Dynamic Sitting: Normal Static Standing: Fair Dynamic Standing: Fair Special Tests: Mobility Limitations Standardized Measure [facility] 6 clicks Basic Mobility Inpatient Short Form: Raw Score: 20 CMS Score: 36% deficit Informed Consent/Education: Patient was instructed in purpose of PT consult. Assessment: Patient was admitted for seizure-like episode, retching, mouth frothing and urinary incontinence that lasted about 5 minutes which prompted to bring patient to the ED on12/16/2024. MRI was negative for acute abnormality and echo showed mild AV sclerosis and regurgitation with EF of 60%. Patient was at baseline mobility level when he was seen today requiring supervision assist by very supportive for hallway amulation using his FWW. Therefore no services were warranted. showed efficient ability to provde needed support for patient in terms of pericare for toileting and dressing as per previous level as observed today. Patient is assessed [place] a 61858 moderate complexity based on the following: History: 74-year-old male with past medical history as indicated above Examination: Demonstrable impairment in strength, balance, and mobility level with underlying impairments and functional limitations as exhibited above as well as deficit score of 11% utilizing the [facility] Mobility Inpatient Short Form Presentation: Stable Decision Makin moderate complexity Goals: N/A. N/A. PT evaluation only. Patient at baseline mobility level needing supervision assist from for all indoor ambualtion. Plan of Care/Treatment Plan: N/A. PT evaluation only. Patient at baseline mobility level needing supervision assist from for all indoor ambulation. DISCHARGE RECOMMENDATIONS: Home with no services. Has all needed equipment at home. TREATMENT CODE/TIME: 11762 x 28 minutes for 2 units (14:00-14:28). Thank you for the opportunity to participate in the care of this patient. Patricia Daly PT, DPT, CLT [facility] [place], [place]
--- NOTE | 2024-12-17 16:29 | PDOC.EEG ---
Neurology EEG EEG: [facility] Department of Neurology INPATIENT EEG REPORT Date of Recordin12/17/24 Interpreting Physician: Dr. Eliza Middleton Reason for study: Alonzo Ortiz is a 74 year-old admitted after an apparent first seizure. Current Medications: Current Medications Acetaminophen (Acetaminophen 325 Mg Tab) 650 mg PO Q4H PRN PRN Amlodipine Besylate (Amlodipine 2.5 Mg Tab) 2.5 mg PO DAILY [facility] Last Admin: 12/17/24 09:35 Dose: 2.5 mg Apixaban (Apixaban 5 Mg Tab) 5 mg PO BID [facility] Last Admin: 12/17/24 09:36 Dose: 5 mg Atorvastatin Calcium (Atorvastatin 40 Mg Tab) 80 mg PO QPM [facility] Bumetanide (Bumetanide 1 Mg Tab) 1 mg PO DAILY [facility] Last Admin: 12/17/24 09:35 Dose: 1 mg Clopidogrel Bisulfate (Clopidogrel 75 Mg Tab) 75 mg PO DAILY [facility] Last Admin: 12/17/24 09:35 Dose: 75 mg Dextrose (Glucose Oral Gel 15 Gm/37.5 Gm Tube) 0 gm PO DIRECTED PRN Dextrose/Water (Dextrose 50%-Water 25 Gm/50 Ml Syr) 0 gm IVP DIRECTED PRN Famotidine (Famotidine 20 Mg Tab) 40 mg PO DAILY [facility] Last Admin: 12/17/24 09:36 Dose: 40 mg Gabapentin (Gabapentin 300 Mg Cap) 300 mg PO DAILY PRN PRN Gabapentin (Gabapentin 100 Mg Cap) 100 mg PO QAM [facility] Gabapentin (Gabapentin 100 Mg Cap) 200 mg PO 1600 MARLYN Gabapentin (Gabapentin 300 Mg Cap) 300 mg PO HS [facility] IV Miscellaneous Supplies (Iv Access) 1 each IV DIRECTED [facility] Insulin Aspart (Insulin Aspart 300 Units/3 Ml Pen) 0 - 9 units SC 0800,1200,1700 [facility]; Protocol Last Admin: 12/17/24 13:12 Dose: Not Given Lisinopril (Lisinopril 20 Mg Tab) 20 mg PO DAILY [facility] Last Admin: 12/17/24 09:36 Dose: 20 mg Metoprolol Succinate (Metoprolol Cr 25 Mg Tabcr) 25 mg PO HS [facility] Polyethylene Glycol (Polyethylene Glycol 3350 17 Gm Packet) 17 gm PO DAILY PRN PRN PRN Reason: Constipation Sodium Chloride (Normal Saline Flush 10 Ml Syr) 0 ml IVP PRN PRN Sodium Chloride (Normal Saline Flush 10 Ml Syr) 0 ml IVP BID [facility] Last Admin: 12/17/24 09:38 Dose: 20 ml Sodium Chloride (Normal Saline 10 Ml Vial) 0 ml IJ DIRECTED PRN Tamsulosin HCl (Tamsulosin 0.4 Mg Capcr) 0.4 mg PO DAILY [facility] Last Admin: 12/17/24 09:35 Dose: 0.4 mg METHODS: A 21 channel digitized electroencephalogram was performed in the [facility] Med/Surg Floor or ICU. The 10/20 international system of electrode placement was used and bipolar and referential electrode montages were recorded. In addition to EEG the patient was monitored for EKG and lateral/vertical eye movements. Activation procedures of photic stimulation and hyperventilation were performed if applicable. Video was used during activation procedures and during events where applicable. The duration of the recording was 30 minutes. DESCRIPTION OF EEG: The patient was noted to be awake and drowsy during the recording. During maximal wakefulness an 8.5-Hz posterior background rhythm was present which was well-modulated, symmetrical, reactive to eye opening, and of moderate voltage. With eye opening the background activity changed to a low voltage mixture of alpha, beta, and occasional theta range frequencies. Faster frequencies were present in the bilateral anterior head regions. There was a normal anterior-posterior voltage gradient. During drowsiness, there was attenuation of the posterior dominant background rhythm and vertex waves. No stage II sleep was recorded. Activating Procedures: Photic stimulation was performed which produced no posterior driving response. Hyperventilation was performed with moderate effort and produced no physiological slowing of the background. Note, it was stopped early at patient request. EKG: EKG revealed a mainly normal sinus rhythm, however there were a few pauses up to 2.5seconds in duration. INTERPRETATION: This EEG is normal during the awake and drowsy states as well as during photic stimulation and hyperventilation. Please see EKG note above. PRIOR EEG: none CLINICAL CORRELATION: No focal regions of cerebral dysfunction or epileptiform activity was present. No sleep was recorded during the study which reduces the sensitivity of the exam. If seizure remains a part of the differential, consider a repeat sleep-deprived EEG or overnight ambulatory EEG. Epilepsy remains a clinical diagnosis and a normal EEG does not rule out epilepsy. Clinical correlation is advised. Please see EKG note above. Eliza Middleton MD Date of service: 12/17/24
[2024-12-17] MEDS: Gabapentin 100 MG CAP 200 MG PO (16:41)
--- NOTE | 2024-12-17 18:07 | DSE_ITS ---
Date of service: 12/17/24 Time of Service: 18:07 DS: Diagnosis Discharge Diagnosis (1) Seizure: Status: Acute (2) Elevated troponin: Status: Acute (3) Peripheral arterial disease with history of revascularization: Status: Acute (4) HTN (hypertension): Status: Chronic (5) Hyperlipidemia: Status: Chronic (6) Type 2 diabetes mellitus: Status: Chronic (7) Anemia: Status: Chronic Discharge Plan Disposition Patient Disposition: Home Condition: Stable Discharge Details Reason For Visit: Seizure Admit Date/Time: 12/17/24 00:12 Admit Provider: Edward Richards Attending Provider: Edward Richards Primary Care Provider: Wanda Cespedes V Hospital Course Hospital Course: Alonzo Ortiz is a 74 year old man with history of CAD, PAD, DM, pAfib, tobacco dependance, and 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 His , a retired nurse, witnessed <1 minute of tonic/clonic type activity with head turning to the right, followed by 10-20 minutes of depresssed mental status. He was initially hypoxemic in the ED as low as 80%. EKG showed atrial fibrillation with some ST depressions that were slightly more pronounced than baseline, but returned to baseline. He never had chest pain, tightness, or shortness of breath. His troponins were elevated and trended up to 1246 before decreasing back to 880. Teleneurology was consulted and felt this was c/w epileptic vs syncopal convulsions. CT and MRI of the brain were negative for pathology. EEG did not show epileptiform activity. He had no further events. Given this, the recommendation was to discharge and follow up with neurology for 24 hour EEG monitoring. Driving restriction until then. His EKG and troponins were reviewed with cardiology. Without chest pain and with EKG at baseline, they felt additional treatment or catheterization was not warrented acutely, though he is at high risk for needing CABG fdc. His clopidogrel and apixaban were continued along with high intensity statin, and a voiding tobacco. He had anemia that was previously noted related to presumed GI source. It was similar to previous levels. Transferrin saturation was 6%. He should follow up for upper and lower endoscopy as previously planned. Iron supplementation was recommended. Follow up with PCP 1 week if still in the area. Recommendations for Follow Up Recommended tests to be ordered by follow up provider: CBC 3-5 days. Home Meds and New Rx's Prescriptions: New ferrous sulfate 325 mg (65 mg iron) tablet 325 mg PO DAILY Qty: 90 0RF Rx Instructions: may take every other day if gastrointestinal distress Continued Eliquis 5 mg tablet 5 mg PO BID famotidine 40 mg tablet 40 mg PO DAILY Patient Comments: TAKE 1 TABLET BY MOUTH ONCE DAILY tamsulosin 0.4 mg capsule 0.4 mg PO DAILY Patient Comments: TAKE 1 CAPSULE BY MOUTH ONCE DAILY gabapentin 100 mg capsule 100 mg PO TID Patient Comments: 100 mg AM 200 mG 1600 300 mG bedtime bumetanide 1 mg tablet 1 mg PO DAILY amlodipine 2.5 mg tablet 2.5 mg PO DAILY lisinopril 20 mg tablet 20 mg PO DAILY atorvastatin 80 mg tablet 80 mg PO DAILY clopidogrel 75 mg tablet 75 mg PO DAILY multivitamin Tablet 1 tab PO DAILY omega 4-yba-don-fish oil [Fish Oil] 1,200 (144-216) mg capsule 1 cap PO DAILY metoprolol succinate 25 mg tablet extended release 24 hr 25 mg PO DAILY glipizide 5 mg tablet extended release 24hr 5 mg PO DAILY Patient Comments: TAKE 1 TABLET BY MOUTH ONCE DAILY gabapentin 300 mg capsule 300 mg PO DAILY PRN Patient Comments: TAKE 1 CAPSULE BY MOUTH ONCE DAILY NEEDED FOR WORSE RLS/NEUROPATHY Discharge Instructions Instructions: Seizures, Driving Restrictions Additional Instructions: Do not drive until you are evaluated by neurology with a 24 hour EEG and cleared. You should set this up in [place] if you are headed down there. Return to the hospital if you get chest pain or additional seizure-like activity You had blood tests indicating some further cardiac damage (elevated troponins). This was improving the morning of discharge. You should continue apixaban and clopidogrel and follow up with your facility maintenance mechanic. It is very important to avoid smoking. You had low iron and anemia that may be putting additional stress on your heart. You should take an iron supplement. You need to follow up for upper and lower endocsopy. Stand Alone Forms: Nursing Discharge Form Referrals: Wanda Cespedes MD [Primary Care Provider, Medicine] Referral Note: Please call your pcp to schedule your follow up to be within the next 7-10 days Activity:: Activity as Tolerated Equipment/Supplies:: No Equipment Needed Diet:: As Tolerated Discharge Orders Discharge Orders: Discharge Order (Routine); Ordered 12/17/24 Ordered By: Rylan Griffin DS: Summary Time Spent with Patient providing and/or coordinating discharge services: Greater than 30 minutes Status at Discharge Functional status at discharge: independent ambulation Overall status at discharge: patient is back to baseline Mental Status: mental status grossly normal Speech and Movement: speech and movement normal Mood: congruent mood Affect: normal affect Quality:SDOH Health Related Social Needs: Health related social needs daily activities Health related social needs details no further Health related social needs details: no further Exam Narrative Exam Narrative: General: Alerti and oriented, in no acute distress CV: RRR, no edema. Resp: CTAB Abd: soft, NTND Neuro: awake, alert, no focal deficits or abnormal movement Psych Mental Status: mental status grossly normal Speech and Movement: speech and movement normal Mood: congruent mood Affect: normal affect DS: Data Vitals/I&O Vitals and I&O: Vital Signs Temperature 37.2 C 12/17/24 15:16 Temperature Source Temporal Artery Scan 12/17/24 15:16 Pulse 70 12/17/24 15:16 Pulse Rhythm Regular 12/17/24 01:11 Pulse 73 12/16/24 23:05 Respiratory Rate 17 12/17/24 15:16 Respiratory Effort Normal 12/17/24 01:11 Respiratory Depth Normal 12/17/24 01:11 Respiratory Pattern Normal 12/17/24 01:11 Blood Pressure 122/50 L 12/17/24 15:16 Blood Pressure Mean 74 12/17/24 15:16 Pulse Oximetry 98 12/17/24 15:16 Oxygen Delivery Method Room Air 12/17/24 15:16 Oxygen Flow Rate 0 12/17/24 15:16 Fraction of Inspired Oxygen (FIO2) 21 12/17/24 06:24 Pain Level 2 12/17/24 15:16 Intake & Output 12/16/24 12/17/24 12/17/24 23:59 11:59 23:59 Intake Total 510 / 510 Output Total 500 / 500 Balance 510 / 510 -500 / -500 Weight 95.663 kg 87.4 kg Intake: IV 510 / 510 Output: Urine 500 / 500 Other: Urine Color Pale Yellow Urine Appearance Clear Data Completed and Pending Labs on day of discharge: Labs from last 24 hours 12/17/24 12/17/2412/17/25 11:26 06:21 00:28 WBC 9.49 RBC 3.55 L Hgb 8.1 L Hct 27.6 L MCV 78 L MCH 22.8 L MCHC 29.3 L RDW 20.7 H Plt Count 276 MPV 11.0 Immature Gran % 0.3 Neutrophils % 74.5 Lymphocytes % 14.9 Monocytes % 8.7 Eosinophils % 1.4 Basophils % 0.2 Nucleated RBC % 0.0 Absolute Neutrophils 7.07 H Absolute Lymphocytes 1.41 Absolute Monocytes 0.83 H Absolute Eosinophils 0.13 Absolute Basophils 0.02 RBC Morphology See Below Hypochromasia 2+ Anisocytosis 1+ Microcytosis 2+ Tear Drop Cells Ovalocytes 2+ PT INR APTT VBG Lactate Sodium 141 Potassium 4.4 Chloride 106 Carbon Dioxide 24.6 Anion Gap 10.4 BUN 45 H Creatinine 1.1 Est GFR (CKD-EPI 2020) 70.44 Glucose 82 Calcium 8.7 Magnesium 2.4 Iron 20 L TIBC 316 Transferrin % Sat 6 L Ferritin 14 L Total Bilirubin 0.3 AST 21 ALT 17 Alkaline Phosphatase 86 Creatine Kinase 64 Troponin I 880 H* 1246 H* NT-Pro-B Natriuret Pep Total Protein 6.0 L Albumin 2.7 L Urine Color Yellow Urine Clarity Clear Urine pH 7.5 Ur Specific [place] 1.020 Urine Protein Negative Urine Ketones Negative Urine Blood Negative Urine Nitrite Negative Urine Bilirubin Negative Urine Urobilinogen 0.2 Ur Leukocyte Esterase Negative Urine Glucose Negative Urine Opiates Screen Negative Urine Methadone Screen Negative Ur Barbiturates Screen Negative Ur Tricyclics Screen Negative Ur Amphetamines Screen Negative U Benzodiazepines Scrn Negative Urine Cocaine Screen Negative Ur THC Screen Negative Ethyl Alcohol Add-On Test Request 12/16/24 12/16/24 12/16/24 22:30 20:58 20:39 WBC RBC Hgb Hct MCV MCH MCHC RDW Plt Count MPV Immature Gran % Neutrophils % Lymphocytes % Monocytes % Eosinophils % Basophils % Nucleated RBC % Absolute Neutrophils Absolute Lymphocytes Absolute Monocytes Absolute Eosinophils Absolute Basophils RBC Morphology Hypochromasia Anisocytosis Microcytosis Tear Drop Cells Ovalocytes PT INR APTT VBG Lactate 2.0 Sodium Potassium Chloride Carbon Dioxide Anion Gap BUN Creatinine Est GFR (CKD-EPI 2020) Glucose Calcium Magnesium Iron TIBC Transferrin % Sat Ferritin Total Bilirubin AST ALT Alkaline Phosphatase Creatine Kinase Troponin I 559 H* NT-Pro-B Natriuret Pep Total Protein Albumin Urine Color Urine Clarity Urine pH Ur Specific [place] Urine Protein Urine Ketones Urine Blood Urine Nitrite Urine Bilirubin Urine Urobilinogen Ur Leukocyte Esterase Urine Glucose Urine Opiates Screen Urine Methadone Screen Ur Barbiturates Screen Ur Tricyclics Screen Ur Amphetamines Screen U Benzodiazepines Scrn Urine Cocaine Screen Ur THC Screen Ethyl Alcohol Add-On Test Request DONE 12/16/24 12/16/24 12/16/24 19:48 18:38 18:36 WBC 16.05 H RBC 4.12 L Hgb 9.2 L Hct 31.8 L MCV 77 L MCH 22.3 L MCHC 28.9 L RDW 20.5 H Plt Count 310 MPV 10.2 Immature Gran % 0.6 Neutrophils % 86.6 Lymphocytes % 5.9 Monocytes % 6.4 Eosinophils % 0.3 Basophils % 0.2 Nucleated RBC % 0.0 Absolute Neutrophils 13.90 H Absolute Lymphocytes 0.95 L Absolute Monocytes 1.03 H Absolute Eosinophils 0.05 Absolute Basophils 0.03 RBC Morphology See Below Hypochromasia Anisocytosis 2+ Microcytosis Tear Drop Cells 2+ Ovalocytes PT 11.3 H INR 1.1 APTT 31.0 H VBG Lactate 3.9 H* Sodium 143 Potassium 5.0 Chloride 102 Carbon Dioxide 28.8 Anion Gap 12.2 H BUN 58 H Creatinine 1.3 Est GFR (CKD-EPI 2020) 57.65 Glucose 165 H Calcium 9.5 Magnesium Iron TIBC Transferrin % Sat Ferritin Total Bilirubin 0.3 AST 15 ALT 23 Alkaline Phosphatase 103 Creatine Kinase Troponin I 150 H* 57 NT-Pro-B Natriuret Pep 978 H Total Protein 7.1 Albumin 3.4 Urine Color Urine Clarity Urine pH Ur Specific [place] Urine Protein Urine Ketones Urine Blood Urine Nitrite Urine Bilirubin Urine Urobilinogen Ur Leukocyte Esterase Urine Glucose Urine Opiates Screen Urine Methadone Screen Ur Barbiturates Screen Ur Tricyclics Screen Ur Amphetamines Screen U Benzodiazepines Scrn Urine Cocaine Screen Ur THC Screen Ethyl Alcohol < 3.0 Add-On Test Request DONE PFS All Active Problems (Updated 12/17/24 @ 00:14 by Bre Hernández) Elevated troponin (Acute) Seizure (Acute) PAD (peripheral artery disease) (Chronic) Hyperlipidemia (Chronic) Type 2 diabetes mellitus (Chronic) HTN (hypertension) (Chronic) [place] (acute kidney injury) (Acute) Non-healing ulcer of left foot with necrosis of bone (Acute) Non-healing ulcer of left ankle with necrosis of bone (Acute) Peripheral arterial disease with history of revascularization (Acute) Acute osteomyelitis of left talus (Acute) Osteomyelitis of left tibia (Acute) Severe sepsis (Acute) Anemia (Chronic) Acute osteomyelitis of left calcaneus (Acute) Social History Smoking risk assessment performed?: No Alcohol Intake: former Housing: house Time Spent with Patient Time Spent with Patient: 45-69 minutes Time was spent: preparing to see the patient(eg.review tests), obtaining and/or reviewing separately otained hiistory, ordering medications,tests, procedures, referring, communicating with other health medicare biller, indepentently interpreting results, counseling the patient and care coordination
--- NOTE | 2024-12-21 17:05 | NUR.NOTE ---
Nursing Note: This RN accessed this patient's chart at this time by the request of [facility] Director Of Billing Manas who is on scene with CPR in progress for this patient. Manas calling to confirm code status on patient as he was informed in scene that patient has a DNR. No DNR noted in patient's chart.
== END 2024-12-17 18:48 | disposition home or self-care (01) ==
LOC: ER 12-17 00:14 → MS 12-17 01:03
PROVIDERS: Admitting Provider Family Medicine; Emergency Provider Nurse Practitioner Family; PCP Family Medicine; Responsible Provider Family Medicine; Visit Provider Family Medicine
DX: R56.9 Unspecified convulsions (principal); R74.8 Abnormal levels of other serum enzymes; I73.9 Peripheral vascular disease, unspecified; I10 Essential (primary) hypertension; E78.2 Mixed hyperlipidemia; I08.0 Rheumatic disorders of both mitral and aortic valves; E11.51 Type 2 diabetes mellitus with diabetic peripheral angiopathy without gangrene; D64.9 Anemia, unspecified; Z79.84 Long term (current) use of oral hypoglycemic drugs; R09.02 Hypoxemia; I48.91 Unspecified atrial fibrillation; Z95.828 Presence of other vascular implants and grafts; Z95.5 Presence of coronary angioplasty implant and graft; I25.10 Atherosclerotic heart disease of native coronary artery without angina pectoris; F17.210 Nicotine dependence, cigarettes, uncomplicated; Z79.899 Other long term (current) drug therapy; E11.40 Type 2 diabetes mellitus with diabetic neuropathy, unspecified; Z79.01 Long term (current) use of anticoagulants; Z95.1 Presence of aortocoronary bypass graft
CPT/HCPCS: 00123; 36415; 51701; 51798; 74177; 80053; 80307; 82550; 93005; 93306; 96360; 97162; 99285; 70450; 70551; 71260; 72125; 80320; 81003; 82728; 83540; 83550; 83605; 83735; 83880; 84484; 85025; 85610; 85730; 93010; 94660; 95816; 99236; G0378; J1815; J3490

== ENCOUNTER → 2024-12-18 13:57 | Outpatient (BNVA) | payer MEDICARE, BC, SELFPAY | PROVIDERS: PCP Family Medicine; Referring Provider Family Medicine; Visit Provider Psychiatry & Neurology Neurology ==